=== PATIENT | female | born 1960 | race Caucasian/White ===

== ENCOUNTER 2020-05-14 08:04 | Emergency (ER) | payer OTHER, MEDICAID ==
[~2020-05-14] VITALS: Ht 167.6 cm; Wt 80.7 kg
[2020-05-14 08:07] VITALS: BP 144/86
[2020-05-14] MEDS ORDERED: IBUPROFEN 600 MG TAB PO ONE (08:20)
[2020-05-14 08:31] LABS: BASOPHILS % (AUTO) 0.2 % (0.0-2.0); EOSINOPHILS # (AUTO) 0.1 K/uL (0-0.4); HEMATOCRIT 39.1 % (36-48); HEMOGLOBIN 13.4 g/dL (12.0-16.0); LYMPHOCYTES # (AUTO) 1.4 K/uL (2.5-16.5); LYMPHOCYTES % (AUTO) 16.8 % (20.5-51.1); MEAN CORPUSCULAR HEMOGLOBIN 32 pg (27-31); MEAN CORPUSCULAR HGB CONC 34 g/dL (33-37); MEAN CORPUSCULAR VOLUME 93.3 fL (80-94); MONOCYTES % (AUTO) 11.7 % (1.7-9.3); NEUTROPHILS # (AUTO) 5.8 K/uL (1.8-7.7); NEUTROPHILS % (AUTO) 70.3 % (42.2-75.2); PLATELET COUNT (AUTO) 205 K/uL (140-450); RED BLOOD CELL COUNT(AUTO) 4.19 MIL/uL (4.20-5.40); RED CELL DISTRIBUTION WIDTH 13.5 % (11.6-13.7); WHITE BLOOD COUNT (AUTO) 8.2 K/uL (4.8-10.8)
[2020-05-14 09:24] LABS: ANION GAP 10.3 (8-16); CARBON DIOXIDE 32.3 mmol/L (21-32); CREATININE 0.6 mg/dL (0.6-1.3); POTASSIUM 4.6 mmol/L (3.5-5.1)
[2020-05-14 09:25] LABS: APPEARANCE,URINE CLEAR (CLEAR); BILIRUBIN,URINE NEGATIVE (NEGATIVE); BLOOD, URINE NEGATIVE (NEGATIVE); COLOR,URINE YELLOW (YELLOW); LEUKOCYTE ESTERASE ,URINE NEGATIVE (NEGATIVE); NITRITE, URINE NEGATIVE (NEGATIVE); PH,URINE 7.5 (5.0-9.0); UGLUCOSE NEGATIVE (NEGATIVE)
[2020-05-14] MEDS ORDERED: NAPR-54 PO ×2 (10:08→10:15)
[2020-05-14 10:30] VITALS: BP 144/86
== END 2020-05-14 10:31 | disposition home or self-care (01) ==
LOC: MED 08:04
DX: S70.02XA Contusion of left hip, initial encounter (principal); S50.02XA Contusion of left elbow, initial encounter; S63.592A Other specified sprain of left wrist, initial encounter; R55 Syncope and collapse; W18.39XA Other fall on same level, initial encounter; Y93.89 Activity, other specified; Y92.89 Other specified places as the place of occurrence of the external cause; Y99.8 Other external cause status
CPT/HCPCS: 36415; 71045; 72170; 73080; 73110; 73502; 80048; 81003; 84484; 85025; 87491; 93005; 99285

== ENCOUNTER 2020-06-13 17:27 | Emergency (ER) | payer OTHER, MEDICAID ==
[~2020-06-13] VITALS: Ht 167.6 cm; Wt 81.2 kg
[~2020-06-13 17:27] MED LIST: NAPR-54 PO
--- NOTE | 2020-06-13 17:27 | NUR ---
Patient HUMBERTO FRANCOIS from [facility], [place], transferred to bed 8. RN evaluating the patient at bedside.
[2020-06-13 17:29] VITALS: BP 173/83
--- NOTE | 2020-06-13 17:40 | NUR ---
Dr. Cazares is evaluating patient at bedside.
--- NOTE | 2020-06-13 17:45 | NUR ---
60 y/o F HUMBERTO from [facility] with c/c shortness of breath/anxiety. Per EMS, patient has been experiencing "shakiness" and shortness of breath. Patient states she has been having recent stressors that is causing her to feel anxious; describes stressor as loss of residency in [facility] and losing her boyfriend from that facility. Patient SpO2 100% on room air RR 20. Patient states associated loss of appetite, back and abdominal pain that is chronic in nature. States she normally takes Gabapentin as prescribed for back pain, and abdominal pain is epigastric region that is 8/10, tight "nerve-like," constant, nonradiating pain. Pt states recent vaccination Covid 2nd dose 06/02/20. Pt denies chest pain, nausea, vomiting, fever, chills. Pt placed onto ekg monitor, placed into gown. Bed locked in lowest position, side rails x 1. PMH: HTN, depression, bipolar, schizophrenia Meds: Gabapentin, see chart. NKA Sx: Hysterectomy 2007
--- NOTE | 2020-06-13 17:55 | NUR ---
Lab at bedside.
[2020-06-13 18:13] LABS: BASOPHILS % (AUTO) 0.2 % (0.0-2.0); EOSINOPHILS # (AUTO) 0.1 K/uL (0-0.4); EOSINOPHILS % (AUTO) 1.4 % (0.0-4.0); HEMATOCRIT 37.3 % (36-48); HEMOGLOBIN 12.6 g/dL (12.0-16.0); LYMPHOCYTES # (AUTO) 1.4 K/uL (2.5-16.5); LYMPHOCYTES % (AUTO) 23.4 % (20.5-51.1); MEAN CORPUSCULAR HEMOGLOBIN 33 pg (27-31); MEAN CORPUSCULAR HGB CONC 34 g/dL (33-37); MEAN CORPUSCULAR VOLUME 95.6 fL (80-94); MONOCYTES # (AUTO) 0.8 K/uL (0.8-1.0); MONOCYTES % (AUTO) 14.2 % (1.7-9.3); NEUTROPHILS # (AUTO) 3.6 K/uL (1.8-7.7); NEUTROPHILS % (AUTO) 60.8 % (42.2-75.2); PLATELET COUNT (AUTO) 198 K/uL (140-450); RED CELL DISTRIBUTION WIDTH 13.4 % (11.6-13.7); WHITE BLOOD COUNT (AUTO) 5.9 K/uL (4.8-10.8)
--- NOTE | 2020-06-13 18:20 | NUR ---
EMT at bedside for EKG.
[2020-06-13 18:26] LABS: ALBUMIN 4.3 g/dL (3.4-5.0); ANION GAP 9.2 (8-16); CARBON DIOXIDE 30.7 mmol/L (21-32); CREATININE 0.8 mg/dL (0.6-1.3); POTASSIUM 3.9 mmol/L (3.5-5.1); TOTAL BILIRUBIN 0.3 mg/dL (0.0-1.0)
--- NOTE | 2020-06-13 18:26 | NUR ---
Xray at bedside
--- NOTE | 2020-06-13 18:46 | NUR ---
Patient resting in semi-fowlers position; no respiratory distress noted. power and recovery supervisor remains in place. SpO2 98% on room air, RR 16. Bed locked in lowest position, side rails x 1, call light in reach.
--- NOTE | 2020-06-13 18:51 | NUR ---
Patient assisted to restroom via wheelchair to urinate.
--- NOTE | 2020-06-13 19:00 | NUR ---
Patient assisted via wheelchair from restroom back to bed. Pt placed back onto site monitor. Bed locked in lowest position, side rails x 1, call light in reach.
--- NOTE | 2020-06-13 19:01 | NUR ---
Urine sample collected, remains at bedside.
--- NOTE | 2020-06-13 19:14 | NUR ---
Report and transfer of care given to Rosana & DEE Mcclendon.
[2020-06-13 19:33] VITALS: BP 120/66
--- NOTE | 2020-06-13 19:33 | NUR ---
Patient discharged with v/s stable. Written and verbal after care instructions given and explained. Patient verbalized understanding. Wheel Chair Assisted with to car. All questions addressed prior to discharge. Advised to follow up with PMD.
== END 2020-06-13 19:33 | disposition home or self-care (01) ==
LOC: MED 17:27
DX: F41.9 Anxiety disorder, unspecified (principal); R06.00 Dyspnea, unspecified; I10 Essential (primary) hypertension; Z79.899 Other long term (current) drug therapy
CPT/HCPCS: 36415; 71045; 80053; 84484; 85025; 93005; 99285

== ENCOUNTER 2020-06-23 09:17 | Outpatient (CLI) | payer OTHER, MEDICAID | END 2020-06-23 20:51 | disposition home or self-care (01) | LOC: MRD 09:17 | DX: M25.561 Pain in right knee (principal) | CPT/HCPCS: 73562 ==

== ENCOUNTER 2020-06-30 18:19 | Emergency (ER) | payer OTHER, MEDICAID ==
[~2020-06-30] VITALS: Ht 167.6 cm; Wt 83.5 kg
[2020-06-30 18:21] VITALS: BP 172/84
[2020-06-30] MEDS ORDERED: ONDANSETRON 4 MG/2 ML VIAL IVP ONE (18:35)
[2020-06-30] MEDS ORDERED: MORPHINE SULFATE 4 MG/ML SYR IVP ONE (18:35)
[2020-06-30 19:08] LABS: BASOPHILS % (AUTO) 0.2 % (0.0-2.0); EOSINOPHILS # (AUTO) 0.2 K/uL (0-0.4); EOSINOPHILS % (AUTO) 3.1 % (0.0-4.0); HEMATOCRIT 35.3 % (36-48); HEMOGLOBIN 12.1 g/dL (12.0-16.0); LYMPHOCYTES # (AUTO) 1.5 K/uL (2.5-16.5); MEAN CORPUSCULAR HEMOGLOBIN 32 pg (27-31); MEAN CORPUSCULAR HGB CONC 34 g/dL (33-37); MEAN CORPUSCULAR VOLUME 94.3 fL (80-94); MONOCYTES # (AUTO) 0.9 K/uL (0.8-1.0); MONOCYTES % (AUTO) 13.6 % (1.7-9.3); NEUTROPHILS # (AUTO) 3.8 K/uL (1.8-7.7); NEUTROPHILS % (AUTO) 60.1 % (42.2-75.2); PLATELET COUNT (AUTO) 188 K/uL (140-450); RED BLOOD CELL COUNT(AUTO) 3.75 MIL/uL (4.20-5.40); RED CELL DISTRIBUTION WIDTH 12.8 % (11.6-13.7); WHITE BLOOD COUNT (AUTO) 6.4 K/uL (4.8-10.8)
--- NOTE | 2020-06-30 19:15 | NUR ---
ULTRASOUND AT BEDSIDE
[2020-06-30 19:21] LABS: ANION GAP 6.4 (8-16); CARBON DIOXIDE 31.5 mmol/L (21-32); CREATININE 0.6 mg/dL (0.6-1.3); POTASSIUM 3.9 mmol/L (3.5-5.1); TOTAL BILIRUBIN 0.4 mg/dL (0.0-1.0)
--- NOTE | 2020-06-30 19:30 | NUR ---
REPORT RECEIVED FROM LINDA PRICE FOR CONTINUITY OF CARE
[2020-06-30 19:37] LABS: APPEARANCE,URINE CLEAR (CLEAR); BILIRUBIN,URINE NEGATIVE (NEGATIVE); BLOOD, URINE NEGATIVE (NEGATIVE); COLOR,URINE YELLOW (YELLOW); LEUKOCYTE ESTERASE ,URINE NEGATIVE (NEGATIVE); NITRITE, URINE NEGATIVE (NEGATIVE); UGLUCOSE NEGATIVE (NEGATIVE)
--- NOTE | 2020-06-30 20:41 | NUR ---
Dr. Cazares examining patient.
[2020-06-30] MEDS ORDERED: GLYPS RC (21:13)
[2020-06-30] MEDS ORDERED: ACETAMINOPHEN EXTRA STRENGTH 500 MG TAB PO ONE (21:20)
[2020-06-30 21:28] VITALS: BP 150/90
--- NOTE | 2020-06-30 21:28 | NUR ---
Patient discharged with v/s stable. Written and verbal after care instructions given and explained. Patient alert, oriented and verbalized understanding of instructions. Ambulatory with steady gait to [facility]. All questions addressed prior to discharge. ID band removed. Patient advised to follow up with PMD. Rx of GLYCERIN given. Patient educated on indication of medication including possible reaction and side effects. Opportunity to ask questions provided and answered.
--- NOTE | 2020-06-30 21:29 | NUR ---
CALLED REPORT TO SWEETIE AT [facility].
== END 2020-06-30 21:28 ==
LOC: MED 18:19
DX: K59.00 Constipation, unspecified (principal); I10 Essential (primary) hypertension; Z79.899 Other long term (current) drug therapy
CPT/HCPCS: 36415; 76705; 80053; 81003; 83690; 84484; 85025; 96374; 96375; 99284; J2270; J2405

== ENCOUNTER 2020-08-11 18:51 | Emergency (ER) | payer OTHER ==
[~2020-08-11] VITALS: Ht 167.6 cm; Wt 63.5 kg
[~2020-08-11 18:51] MED LIST changes: +GLYPS RC
[2020-08-11 18:59] VITALS: BP 147/83
--- NOTE | 2020-08-11 19:03 | NUR ---
PT HUMBERTO FROM [facility]. PATIENT PRESENTS TO ED WITH CONSTIPATION X 1 WEEK . PT STATES SHE IS ALSO HAVING BILATERAL FLANK PAIN . DENIES N/V/D; SKIN IS PINK/WARM/DRY; AAOX4 WITH EVEN AND STEADY GAIT; LUNGS CLEAR BL; HR EVEN AND REGULAR; PT DENIES ANY FEVER, CP, SOB, OR COUGH AT THIS TIME; PATIENT STATES PAIN OF 5/10 AT THIS TIME; VSS; PATIENT POSITIONED FOR COMFORT; HOB ELEVATED; BEDRAILS UP X2; BED DOWN. ER MD MADE AWARE OF PT STATUS.
--- NOTE | 2020-08-11 19:17 | NUR ---
RECEIVED REPORT FROM MARCELA PRICE FOR CONTINUITY OF CARE
[2020-08-11] MEDS ORDERED: SENNA 8.6 MG TAB PO SCH (19:20)
[2020-08-11] MEDS ORDERED: SODIUM PHOSPHATE 118 ML ENEM RC ONE (19:20)
[2020-08-11] MEDS ORDERED: DOCUSATE SODIUM 100 MG GELCAP PO PRN (19:20)
[2020-08-11] MEDS ORDERED: MAGNESIUM CITRATE 300 ML BTL PO ONE (19:20)
[2020-08-11] MEDS ORDERED: DOCU-299 PO (20:40)
[2020-08-12 00:15] VITALS: BP 147/83
--- NOTE | 2020-08-12 00:15 | NUR ---
Patient discharged with v/s stable. Written and verbal after care instructions given and explained. Patient alert, oriented and verbalized understanding of instructions. Ambulatory with to intermediate. All questions addressed prior to discharge. ID band removed. Patient advised to follow up with PMD. Rx of DOCUSATE SODIUM given. Patient educated on indication of medication including possible reaction and side effects. Opportunity to ask questions provided and answered.
== END 2020-08-12 00:15 | disposition home or self-care (01) ==
LOC: MED 18:51
DX: K59.00 Constipation, unspecified (principal); R14.0 Abdominal distension (gaseous); E11.9 Type 2 diabetes mellitus without complications; I10 Essential (primary) hypertension; Z79.899 Other long term (current) drug therapy; Z90.710 Acquired absence of both cervix and uterus
CPT/HCPCS: 99284

== ENCOUNTER 2020-08-25 18:38 | Emergency (ER) | payer OTHER ==
[~2020-08-25] VITALS: Ht 167.6 cm; Wt 78.0 kg
[~2020-08-25 18:38] MED LIST changes: +DOCU-299 PO
[2020-08-25 18:40] VITALS: BP 145/79
--- NOTE | 2020-08-25 18:40 | NUR ---
Patient is a 60 y/o female BIBA from [facility] c/o constipation x1 year. Also c/o abdominal pain secondary to constipation, sharp pain 12/18 today. Per patient no n/v/d. Patient denies blood in stool or hematuria. Patient denies CP or SOB. NKA PMH: HTN, Bipolar, Schizophrenia, neuropathy, anxiety, unspecified chest pain Rx: does not know names
--- NOTE | 2020-08-25 19:03 | NUR ---
Patient taken to CT scan via gurney by Tyros.
--- NOTE | 2020-08-25 19:16 | NUR ---
Report given to DEE Shelby for continuation of care.
--- NOTE | 2020-08-25 19:37 | NUR ---
Dr. Zaragoza is evaluating the patient at bedside.
[2020-08-25] MEDS ORDERED: SODIUM PHOSPHATE 118 ML ENEM RC ONE (19:40)
[2020-08-25] MEDS ORDERED: MIRABULK PO (20:12)
[2020-08-25] MEDS ORDERED: MAGN1.7529 PO (20:12)
--- NOTE | 2020-08-25 20:21 | NUR ---
PT AMBULATED TO RESTROOM W/ ASSISTANCE.
--- NOTE | 2020-08-25 20:45 | NUR ---
attempted to call [facility] to report that pt is to be d/c back. x 3 times with no success.
--- NOTE | 2020-08-25 20:49 | NUR ---
Patient ambulated w/ walked to restroom
--- NOTE | 2020-08-25 20:54 | NUR ---
per pt, successful elimination. Dr. Zaragoza made aware.
[2020-08-25 20:55] VITALS: BP 136/79
--- NOTE | 2020-08-25 21:34 | NUR ---
attempted to call [facility] again x 11 times and no answer.
--- NOTE | 2020-08-25 22:46 | NUR ---
d/c with VSS. d/c education given. rx of miralax and mag citrate given. opportunity to ask questions given and answered.
[2020-08-26] MEDS ORDERED: MAGN296S48 PO (18:32)
[2020-08-26] MEDS ORDERED: GLYPS RC (22:58)
== END 2020-08-25 22:46 | disposition home or self-care (01) ==
LOC: MED 18:38
DX: K59.00 Constipation, unspecified (principal); E11.9 Type 2 diabetes mellitus without complications; I10 Essential (primary) hypertension; Z79.899 Other long term (current) drug therapy
CPT/HCPCS: 99284

== ENCOUNTER 2020-08-26 17:03 | Emergency (ER) | payer OTHER ==
[~2020-08-26] VITALS: Ht 167.6 cm; Wt 81.6 kg
[~2020-08-26 17:03] MED LIST changes: +MAGN1.7529 PO; +MIRABULK PO
[2020-08-26 17:16] VITALS: BP 137/87
--- NOTE | 2020-08-26 17:18 | NUR ---
PATIENT WHEELCHAIR ASSISTED TO LOBBY
--- NOTE | 2020-08-26 17:41 | NUR ---
60 Y/O FEMALE C/O CONSTIPATION, WAS SEEN AT [facility] YESTERDAY AND HAD ENEMA FOR SAME ISSUE. PT STATES SHE NEVER GOT TO TAKE HER PRESCRIPTION SO SHE WANTED TO RETURN. PT STATES "I WANT THE YELLOW BOTTLE THAT WILL HELP ME" PMH: BIPOLAR, DEPRESSION, SCHIZOPHRENIA ZEINA
[2020-08-26] MEDS ORDERED: MAGNESIUM CITRATE 300 ML BTL PO ONE (18:30)
[2020-08-26] MEDS ORDERED: MAGN296S48 PO (18:32)
--- NOTE | 2020-08-26 19:06 | NUR ---
Gave report to DEE Lopez for pending transfer via [employer] taxi voucher.
--- NOTE | 2020-08-26 19:12 | NUR ---
Patient discharged with v/s stable. Written and verbal after care instructions given and explained. Patient alert, oriented and verbalized understanding of instructions. Ambulatory with steady gait. All questions addressed prior to discharge. ID band removed. Patient advised to follow up with PMD. Rx of Magnesium Citrate 150 mL PO PRN B.I.D given. Patient educated on indication of medication including possible reaction and side effects. Opportunity to ask questions provided and answered.
--- NOTE | 2020-08-26 19:15 | NUR ---
Spoke with LACEY OSWALD for pt voucher [id number], authorized by Betty.
--- NOTE | 2020-08-26 19:45 | NUR ---
CALLED [facility] TO POSSIBLY PROVIDE TRANSPORTATION, NO ANSWER, VOICEMAIL LEFT.
--- NOTE | 2020-08-26 19:58 | NUR ---
[facility] CALLED BACK AND STATED UNABLE TO PICK PATIENT UP. CALLING [facility] POSSIBLE ETA FOR PATIENT.
--- NOTE | 2020-08-26 20:05 | NUR ---
Gave report to DEE Bingham. Transfer of care at this time.
--- NOTE | 2020-08-26 21:01 | NUR ---
CALLED [facility] AND NO ETA FOR TRANSPORTATION AT THIS TIME. PER [facility] NO DRIVERS AVAILABLE AT THIS TIME.
--- NOTE | 2020-08-26 21:12 | NUR ---
SPOKE WITH OSMIN FROM [facility] AND [facility] 15-20 MIN.
--- NOTE | 2020-08-26 22:11 | NUR ---
PATIENT AMBUALTED TO RESTROOM WITH STEADY GAIT.
[2020-08-26 22:50] VITALS: BP 132/76
[2020-08-26] MEDS ORDERED: GLYPS RC (22:58)
--- NOTE | 2020-08-26 23:00 | NUR ---
PATIENT PICKED UP BY [facility], PATIENT ABLE TO AMBULATE WITH STEADY GAIT TO [facility]. VSS.
== END 2020-08-26 19:11 | disposition home or self-care (01) ==
LOC: MED 17:03
DX: K59.00 Constipation, unspecified (principal); E11.9 Type 2 diabetes mellitus without complications; I10 Essential (primary) hypertension; Z79.899 Other long term (current) drug therapy
CPT/HCPCS: 99282

== ENCOUNTER 2020-08-30 19:57 | Emergency (ER) | payer OTHER ==
[~2020-08-30] VITALS: Ht 167.6 cm; Wt 81.6 kg
[~2020-08-30 19:57] MED LIST changes: +MAGN296S48 PO
[2020-08-30 19:58] VITALS: BP 122/67
[2020-08-30 20:38] LABS: BASOPHILS # (AUTO) 0.1 K/uL (0.00-0.22); BASOPHILS % (AUTO) 0.8 % (0.0-2.0); EOSINOPHILS # (AUTO) 0.9 K/uL (0-0.4); EOSINOPHILS % (AUTO) 11.6 % (0.0-4.0); HEMATOCRIT 33.6 % (36-48); HEMOGLOBIN 11.5 g/dL (12.0-16.0); LYMPHOCYTES # (AUTO) 2.2 K/uL (2.5-16.5); MEAN CORPUSCULAR HEMOGLOBIN 33 pg (27-31); MEAN CORPUSCULAR HGB CONC 34 g/dL (33-37); MEAN CORPUSCULAR VOLUME 95.2 fL (80-94); MONOCYTES # (AUTO) 0.9 K/uL (0.8-1.0); MONOCYTES % (AUTO) 10.6 % (1.7-9.3); NEUTROPHILS # (AUTO) 4.1 K/uL (1.8-7.7); PLATELET COUNT (AUTO) 197 K/uL (140-450); RED BLOOD CELL COUNT(AUTO) 3.53 MIL/uL (4.20-5.40); RED CELL DISTRIBUTION WIDTH 12.7 % (11.6-13.7); WHITE BLOOD COUNT (AUTO) 8.2 K/uL (4.8-10.8)
[2020-08-30 20:51] LABS: ALBUMIN 3.7 g/dL (3.4-5.0); ANION GAP 8.8 (8-16); CARBON DIOXIDE 32.9 mmol/L (21-32); CREATININE 0.9 mg/dL (0.6-1.3); POTASSIUM 3.7 mmol/L (3.5-5.1); TOTAL BILIRUBIN 0.3 mg/dL (0.0-1.0)
[2020-08-30] MEDS ORDERED: MAGNESIUM CITRATE 300 ML BTL PO ONE (23:05)
[2020-08-31] MEDS ORDERED: MAGNESIUM CITRATE 300 ML BTL ONE (01:14)
[2020-08-31 03:40] VITALS: BP 122/78
== END 2020-08-31 03:40 ==
LOC: MED 19:57
DX: R07.9 Chest pain, unspecified (principal); K21.9 Gastro-esophageal reflux disease without esophagitis; I10 Essential (primary) hypertension; F20.9 Schizophrenia, unspecified; F32.9 Major depressive disorder, single episode, unspecified; F41.9 Anxiety disorder, unspecified; Z79.899 Other long term (current) drug therapy
CPT/HCPCS: 36415; 71045; 80053; 84484; 85025; 93005; 99285

== ENCOUNTER 2020-09-02 17:42 | Emergency (ER) | payer OTHER ==
[~2020-09-02] VITALS: Ht 162.6 cm; Wt 74.4 kg
--- NOTE | 2020-09-02 17:42 | NUR ---
Patient HUMBERTO FRANCOIS from [facility], triaged by RN and transferred to the lobby.
[2020-09-02 17:52] VITALS: BP 125/78
--- NOTE | 2020-09-02 18:15 | NUR ---
Pt w/c assisted to bed 8.
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
--- NOTE | 2020-09-02 19:20 | NUR ---
REPORT GIVEN TO DEE GUZMAN. TRANSFER OF CARE GIVEN
[2020-09-02 19:30] VITALS: BP 125/78
--- NOTE | 2020-09-02 19:30 | NUR ---
Patient discharged with v/s stable. Written and verbal after care instructions given and explained. Patient verbalized understanding. Ambulatory with steady gait. All questions addressed prior to discharge. Advised to follow up with PMD.
== END 2020-09-02 19:30 | disposition home or self-care (01) ==
LOC: MED 17:42
DX: K59.00 Constipation, unspecified (principal); I51.9 Heart disease, unspecified; K21.9 Gastro-esophageal reflux disease without esophagitis; Z79.899 Other long term (current) drug therapy; F41.9 Anxiety disorder, unspecified; F20.9 Schizophrenia, unspecified; F32.9 Major depressive disorder, single episode, unspecified
CPT/HCPCS: 99281; 99283

== ENCOUNTER 2020-09-14 15:51 | Emergency (ER) | payer OTHER ==
[~2020-09-14] VITALS: Ht 167.6 cm; Wt 80.7 kg
[2020-09-14 15:56] VITALS: BP 166/83
[2020-09-14] MEDS ORDERED: ACETAMINOPHEN 650 MG/20.3 ML UDC PO ONE (16:00)
[2020-09-14] MEDS ORDERED: KETOROLAC 15 MG/ML VIAL IM ONE (16:00)
[2020-09-14 16:40] LABS: BASOPHILS % (AUTO) 0.1 % (0.0-2.0); EOSINOPHILS # (AUTO) 0.2 K/uL (0-0.4); EOSINOPHILS % (AUTO) 3.5 % (0.0-4.0); HEMATOCRIT 33.1 % (36-48); HEMOGLOBIN 11.2 g/dL (12.0-16.0); LYMPHOCYTES # (AUTO) 1.4 K/uL (2.5-16.5); LYMPHOCYTES % (AUTO) 22.1 % (20.5-51.1); MEAN CORPUSCULAR HEMOGLOBIN 33 pg (27-31); MEAN CORPUSCULAR HGB CONC 34 g/dL (33-37); MEAN CORPUSCULAR VOLUME 96.4 fL (80-94); MONOCYTES # (AUTO) 0.9 K/uL (0.8-1.0); MONOCYTES % (AUTO) 14.5 % (1.7-9.3); NEUTROPHILS # (AUTO) 3.7 K/uL (1.8-7.7); NEUTROPHILS % (AUTO) 59.8 % (42.2-75.2); PLATELET COUNT (AUTO) 193 K/uL (140-450); RED BLOOD CELL COUNT(AUTO) 3.43 MIL/uL (4.20-5.40); RED CELL DISTRIBUTION WIDTH 12.9 % (11.6-13.7); WHITE BLOOD COUNT (AUTO) 6.2 K/uL (4.8-10.8)
[2020-09-14 17:07] LABS: ALBUMIN 4.2 g/dL (3.4-5.0); ANION GAP 11.8 (8-16); CARBON DIOXIDE 31.1 mmol/L (21-32); CREATININE 0.9 mg/dL (0.6-1.3); POTASSIUM 3.9 mmol/L (3.5-5.1); TOTAL BILIRUBIN 0.3 mg/dL (0.0-1.0)
[2020-09-14 19:13] VITALS: BP 137/85
== END 2020-09-14 19:19 | disposition home or self-care (01) ==
LOC: MED 15:51
DX: R51.9 Headache, unspecified (principal); R60.0 Localized edema; F31.9 Bipolar disorder, unspecified; F20.9 Schizophrenia, unspecified; I10 Essential (primary) hypertension
CPT/HCPCS: 36415; 71045; 80053; 83880; 84484; 85025; 85651; 93005; 96372; 99285; J1885

== ENCOUNTER 2020-09-23 21:35 | Emergency (ER) | payer OTHER ==
[~2020-09-23] VITALS: Ht 167.6 cm; Wt 81.2 kg
[2020-09-23 21:40] VITALS: BP 146/89
--- NOTE | 2020-09-23 21:43 | NUR ---
TO LOBBY A/W BED AMBULATORY
--- NOTE | 2020-09-23 22:40 | NUR ---
PATIENT PRESENTS TO ED VIA [facility] WITH C/O CONSTIPATION . PT STATES LAST BM WAS YESTERDAY AM . SKIN IS PINK/WARM/DRY; AAOX4 WITH WALKER; LUNGS CLEAR BL; HR EVEN AND REGULAR; PT DENIES ANY FEVER, CP, SOB, OR COUGH AT THIS TIME; VSS; PATIENT POSITIONED FOR COMFORT; HOB ELEVATED; BEDRAILS UP X2; BED DOWN. ER MD MADE AWARE OF PT STATUS.
--- NOTE | 2020-09-23 22:45 | NUR ---
DR. DAUGHERTY AT BEDSIDE FOR EXAM
[2020-09-23] MEDS ORDERED: HYDROcodone/APAP 5/325 MG 1 TAB TAB PO ONE (23:25)
[2020-09-23] MEDS ORDERED: MAGN400S60 PO (23:29)
[2020-09-23 23:30] VITALS: BP 138/74
--- NOTE | 2020-09-23 23:48 | NUR ---
Patient discharged with v/s stable. Written and verbal after care instructions given and explained. Patient alert, oriented and verbalized understanding of instructions. Ambulatory with steady gait. All questions addressed prior to discharge. ID band removed. Patient advised to follow up with PMD. Rx of MAALOX given. Patient educated on indication of medication including possible reaction and side effects. Opportunity to ask questions provided and answered.
--- NOTE | 2020-09-23 23:52 | NUR ---
CALLED [facility] FOR TRANSPORTATION. ETA IN 1 HR.
[2020-09-27] MEDS ORDERED: MAGN1.7529 PO (01:48)
== END 2020-09-23 23:48 | disposition home or self-care (01) ==
LOC: MED 21:35
DX: K59.00 Constipation, unspecified (principal); I10 Essential (primary) hypertension
CPT/HCPCS: 99283

== ENCOUNTER 2020-09-26 18:22 | Emergency (ER) | payer OTHER ==
[~2020-09-26] VITALS: Ht 165.1 cm; Wt 65.8 kg
[~2020-09-26 18:22] MED LIST changes: +MAGN400S60 PO
[2020-09-26 18:29] VITALS: BP 136/77
--- NOTE | 2020-09-26 19:13 | NUR ---
[facility]ANCES[facility] ASSESSED PATIENT IN LOBBY FOR MEDICAL EVALUATION.
[2020-09-26] MEDS ORDERED: NACL 0.9% 1,000 ML IV ONE (19:25)
--- NOTE | 2020-09-26 19:42 | NUR ---
PATIENT LABS DRAWN IN [facility].
[2020-09-26 19:59] LABS: EOSINOPHILS # (AUTO) 0.3 K/uL (0-0.4); EOSINOPHILS % (AUTO) 3.6 % (0.0-4.0); HEMATOCRIT 34.7 % (36-48); HEMOGLOBIN 11.6 g/dL (12.0-16.0); LYMPHOCYTES % (AUTO) 28.5 % (20.5-51.1); MEAN CORPUSCULAR HEMOGLOBIN 33 pg (27-31); MEAN CORPUSCULAR HGB CONC 34 g/dL (33-37); MEAN CORPUSCULAR VOLUME 97.4 fL (80-94); MONOCYTES # (AUTO) 0.7 K/uL (0.8-1.0); MONOCYTES % (AUTO) 10.4 % (1.7-9.3); NEUTROPHILS % (AUTO) 57.5 % (42.2-75.2); PLATELET COUNT (AUTO) 233 K/uL (140-450); RED BLOOD CELL COUNT(AUTO) 3.56 MIL/uL (4.20-5.40)
[2020-09-26 20:03] LABS: APPEARANCE,URINE CLEAR (CLEAR); BILIRUBIN,URINE NEGATIVE (NEGATIVE); BLOOD, URINE NEGATIVE (NEGATIVE); COLOR,URINE YELLOW (YELLOW); LEUKOCYTE ESTERASE ,URINE TRACE (NEGATIVE); NITRITE, URINE NEGATIVE (NEGATIVE); UGLUCOSE NEGATIVE (NEGATIVE)
[2020-09-26 20:17] LABS: ALBUMIN 3.9 g/dL (3.4-5.0); ANION GAP 12.1 (8-16); CARBON DIOXIDE 31.7 mmol/L (21-32); CREATININE 0.9 mg/dL (0.6-1.3); POTASSIUM 4.8 mmol/L (3.5-5.1); TOTAL BILIRUBIN 0.4 mg/dL (0.0-1.0)
--- NOTE | 2020-09-26 20:20 | NUR ---
PT AMBULATED TO BED 2
[2020-09-26 21:09] LABS: YEAST,URINE Rare /HPF (None Seen)
[2020-09-26] MEDS ORDERED: cephALEXin 500 MG CAP PO ONE (21:20)
[2020-09-26] MEDS ORDERED: CEPH-588 PO (21:22)
[2020-09-26 21:55] VITALS: BP 136/77
--- NOTE | 2020-09-26 21:55 | NUR ---
Patient discharged with v/s stable. Written and verbal after care instructions given and explained. Patient alert, oriented and verbalized understanding of instructions. Ambulatory with steady gait. All questions addressed prior to discharge. ID band removed. Patient advised to follow up with PMD. Rx of KEFLEX, PYRIDIUM given. Patient educated on indication of medication including possible reaction and side effects. Opportunity to ask questions provided and answered.
--- NOTE | 2020-09-26 21:55 | NUR ---
Per ERMD, patient ok for discharge w/o keflex medication.
[2020-09-26] MEDS ORDERED: PHEN-1877 PO (22:15)
[2020-09-27] MEDS ORDERED: MAGN1.7529 PO (01:48)
== END 2020-09-26 21:55 | disposition home or self-care (01) ==
LOC: MED 18:22
DX: N39.0 Urinary tract infection, site not specified (principal); K59.00 Constipation, unspecified; K21.9 Gastro-esophageal reflux disease without esophagitis; I10 Essential (primary) hypertension; Z79.899 Other long term (current) drug therapy; Z90.710 Acquired absence of both cervix and uterus
CPT/HCPCS: 36415; 80053; 81001; 83605; 85025; 87086; 87186; 96360; 99284; J7030

== ENCOUNTER 2020-09-29 00:48 | Emergency (ER) | payer OTHER ==
[~2020-09-29] VITALS: Ht 167.6 cm; Wt 81.2 kg
[~2020-09-29 00:48] MED LIST changes: +CEPH-588 PO; +PHEN-1877 PO
[2020-09-29 00:54] VITALS: BP 152/95
[2020-09-29 01:20] LABS: APPEARANCE,URINE CLEAR (CLEAR); BILIRUBIN,URINE NEGATIVE (NEGATIVE); BLOOD, URINE NEGATIVE (NEGATIVE); COLOR,URINE YELLOW (YELLOW); LEUKOCYTE ESTERASE ,URINE NEGATIVE (NEGATIVE); NITRITE, URINE NEGATIVE (NEGATIVE); UGLUCOSE NEGATIVE (NEGATIVE)
--- NOTE | 2020-09-29 03:21 | NUR ---
TO BED 11 FROM TRIAGE
--- NOTE | 2020-09-29 03:22 | NUR ---
RECEIVED IN BED 11 AFTER BEING BIBA WITH UTI COMPLAINTS. PT WAS DX WITH UTI, GIVEN AN RX FOR ANTIBIOTICS THEN CALLED 911 TONIGHT WITH ADDITIONAL C/O CONSTIPATION. PT IS AWAKE AND ALERT. SKIN IS WARM AND DRY. Addendum: 09/29/20 at 0325 by GIOVANI PMH : SCHIZOPHRENIA, BIPOLAR
--- NOTE | 2020-09-29 03:50 | NUR ---
Patient ambualted to bed restroom with steeady gait.
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
--- NOTE | 2020-09-29 04:39 | NUR ---
RETURNED FROM RADIOLOGY
[2020-09-29] MEDS ORDERED: MAGNESIUM CITRATE 300 ML BTL PO ONE (04:50)
[2020-09-29] MEDS ORDERED: DOCU-349 PO (04:51)
[2020-09-29] MEDS ORDERED: MAGNESIUM CITRATE 300 ML BTL ONE (04:53)
[2020-09-29] MEDS ORDERED: ACETAMINOPHEN EXTRA STRENGTH 500 MG TAB PO ONE (05:10)
[2020-09-29 05:33] VITALS: BP 152/95
--- NOTE | 2020-09-29 05:33 | NUR ---
Patient discharged with v/s stable. Written and verbal after care instructions given and explained. Patient verbalized understanding. Ambulatory with steady gait. All questions addressed prior to discharge. Advised to follow up with PMD. FERNANDO CALLED
[2020-09-30] MEDS ORDERED: NITR100C1 PO (23:35)
[2020-09-30] MEDS ORDERED: PRED20TA5 PO (23:35)
[2020-09-30] MEDS ORDERED: DIPH25TA53 PO (23:35)
== END 2020-09-29 05:33 | disposition home or self-care (01) ==
LOC: MED 00:48
DX: K59.00 Constipation, unspecified (principal)
CPT/HCPCS: 74021; 81003; 99284

== ENCOUNTER 2020-09-30 22:46 | Emergency (ER) | payer OTHER ==
[~2020-09-30] VITALS: Ht 170.2 cm; Wt 85.7 kg
[~2020-09-30 22:46] MED LIST changes: +DOCU-349 PO
--- NOTE | 2020-09-30 22:46 | NUR ---
TO BED AMBULATORY, BROUGHT IN BY AMBULANCE WITH C/O ABD PAIN.
--- NOTE | 2020-09-30 22:49 | NUR ---
60 YO F BIBA FROM [facility] FROM C/C OF CONSTIPATION X2 DAYS. ABD IS SOFT AND ROUND, BOWEL SOUNDS X4 ACTIVE. TENDER TO TOUCH. PT HAS BILAT SWELLING +3 ON LE. PT DENIES TAKING ANYTHING FOR CONSTIPATION. SIDE RAILS X2, BED LOCKED IN LOWEST POSITION. HX: MANIC DEPRESSION, SCHIZO, AND BIPOL NKA
[2020-09-30 22:51] VITALS: BP 141/78
--- NOTE | 2020-09-30 23:04 | NUR ---
ERMD AT BEDSIDE.
[2020-09-30] MEDS ORDERED: MAGNESIUM CITRATE 300 ML BTL PO ONE (23:25)
[2020-09-30] MEDS ORDERED: NITR100C1 PO (23:35)
[2020-09-30] MEDS ORDERED: PRED20TA5 PO (23:35)
[2020-09-30] MEDS ORDERED: DIPH25TA53 PO (23:35)
[2020-09-30] MEDS ORDERED: methylPREDNISolone SS 125 MG/2 ML VIAL IM ONE (23:40)
[2020-09-30] MEDS ORDERED: FAMOTIDINE 20 MG TAB PO ONE (23:40)
[2020-09-30] MEDS ORDERED: diphenhydrAMINE 50 MG/ML VIAL IM ONE (23:40)
--- NOTE | 2020-10-01 | NUR ---
CALLED [facility] QU[facility] TO INFORM ABOUT PT GOING BACK. NO ANSWER.
[2020-10-01 00:11] VITALS: BP 141/78
--- NOTE | 2020-10-01 00:11 | NUR ---
Patient discharged with v/s stable. Written and verbal after care instructions given and explained. Patient alert, oriented and verbalized understanding of instructions. Ambulatory with steady gait. All questions addressed prior to discharge. ID band removed. Patient advised to follow up with PMD. Rx of PREDNISONE, BENDARYL, AND NITROFURANTOIN given. Patient educated on indication of medication including possible reaction and side effects. Opportunity to ask questions provided and answered.
[2020-10-02] MEDS ORDERED: DIPH25TA53 PO (20:04)
[2020-10-02] MEDS ORDERED: FAMO-90 PO (20:04)
[2020-10-02] MEDS ORDERED: PRED20TA5 PO (20:04)
== END 2020-10-01 00:11 | disposition home or self-care (01) ==
LOC: MED 22:46
DX: R21 Rash and other nonspecific skin eruption (principal); K59.09 Other constipation; R30.0 Dysuria; K21.9 Gastro-esophageal reflux disease without esophagitis; I10 Essential (primary) hypertension; Z79.899 Other long term (current) drug therapy
CPT/HCPCS: 96372; 99284; J1200; J2930

== ENCOUNTER 2020-10-02 17:32 | Emergency (ER) | payer OTHER ==
[~2020-10-02] VITALS: Ht 167.6 cm; Wt 81.6 kg
[~2020-10-02 17:32] MED LIST changes: -CEPH-588 PO; +DIPH25TA53 PO; +NITR100C1 PO; +PRED20TA5 PO
[2020-10-02 17:39] VITALS: BP 140/80
[2020-10-02 19:10] LABS: HEMATOCRIT 31.5 % (36-48); HEMOGLOBIN 10.7 g/dL (12.0-16.0); LYMPHOCYTES # (AUTO) 0.7 K/uL (2.5-16.5); LYMPHOCYTES % (AUTO) 10.2 % (20.5-51.1); MEAN CORPUSCULAR HEMOGLOBIN 33 pg (27-31); MEAN CORPUSCULAR HGB CONC 34 g/dL (33-37); MEAN CORPUSCULAR VOLUME 96.2 fL (80-94); MONOCYTES # (AUTO) 0.3 K/uL (0.8-1.0); MONOCYTES % (AUTO) 5.2 % (1.7-9.3); NEUTROPHILS # (AUTO) 5.6 K/uL (1.8-7.7); NEUTROPHILS % (AUTO) 84.6 % (42.2-75.2); PLATELET COUNT (AUTO) 212 K/uL (140-450); RED BLOOD CELL COUNT(AUTO) 3.28 MIL/uL (4.20-5.40); RED CELL DISTRIBUTION WIDTH 12.9 % (11.6-13.7); WHITE BLOOD COUNT (AUTO) 6.7 K/uL (4.8-10.8)
[2020-10-02 19:24] LABS: ALBUMIN 3.7 g/dL (3.4-5.0); CARBON DIOXIDE 30.1 mmol/L (21-32); CREATININE 0.8 mg/dL (0.6-1.3); POTASSIUM 4.1 mmol/L (3.5-5.1); TOTAL BILIRUBIN 0.2 mg/dL (0.0-1.0)
[2020-10-02] MEDS ORDERED: FAMOTIDINE 20 MG TAB PO ONE (19:50)
[2020-10-02] MEDS ORDERED: methylPREDNISolone SS 125 MG/2 ML VIAL IM ONE (19:50)
[2020-10-02] MEDS ORDERED: diphenhydrAMINE 50 MG/ML VIAL IM ONE (19:50)
[2020-10-02] MEDS ORDERED: FAMO-90 PO (20:04)
[2020-10-02] MEDS ORDERED: DIPH25TA53 PO (20:04)
[2020-10-02] MEDS ORDERED: PRED20TA5 PO (20:04)
[2020-10-02 20:28] VITALS: BP 143/75
== END 2020-10-02 20:28 | disposition home or self-care (01) ==
LOC: MED 17:32
DX: R21 Rash and other nonspecific skin eruption (principal); K21.9 Gastro-esophageal reflux disease without esophagitis; I10 Essential (primary) hypertension; Z79.899 Other long term (current) drug therapy
CPT/HCPCS: 36415; 80053; 85025; 96372; 99284; J1200; J2930

== ENCOUNTER 2020-10-06 15:42 | Emergency (ER) | payer OTHER ==
[~2020-10-06] VITALS: Ht 170.2 cm; Wt 68.9 kg
[~2020-10-06 15:42] MED LIST changes: +FAMO-90 PO
[2020-10-06 15:50] VITALS: BP 138/78
--- NOTE | 2020-10-06 15:52 | NUR ---
PT AMBULATED TO LOBBY
--- NOTE | 2020-10-06 18:01 | NUR ---
PT AMBULATED TO BED 11.
[2020-10-06] MEDS ORDERED: ACETAMINOPHEN 325 MG TAB PO ONE (18:15)
--- NOTE | 2020-10-06 18:26 | NUR ---
60/F an from [facility] with c/o anxiety. Patient states after returning home from physical therapy she had a disagreement with her roommate and she began feeling extremely anxious. Patient states she has chronic right knee pain and is currently feeling 7/10 pain. Patient is alert and oriented x4, answering questions appropriately, no distress noted. Patient reports feeling "calm" at the moment.
[2020-10-06 18:30] LABS: APPEARANCE,URINE CLEAR (CLEAR); BILIRUBIN,URINE NEGATIVE (NEGATIVE); BLOOD, URINE NEGATIVE (NEGATIVE); COLOR,URINE YELLOW (YELLOW); LEUKOCYTE ESTERASE ,URINE NEGATIVE (NEGATIVE); NITRITE, URINE NEGATIVE (NEGATIVE); PH,URINE 7.5 (5.0-9.0); UGLUCOSE NEGATIVE (NEGATIVE)
--- NOTE | 2020-10-06 19:10 | NUR ---
Pt report given to Korey. Transfer of care at this time.
[2020-10-06 19:17] VITALS: BP 145/78
--- NOTE | 2020-10-06 19:17 | NUR ---
CALLED [facility] TO GIVE REPORT THAT PT. IS GOING HOME WITH FERNANDO HENDRIX.
== END 2020-10-06 19:17 | disposition home or self-care (01) ==
LOC: MED 15:42
DX: F41.9 Anxiety disorder, unspecified (principal); K21.9 Gastro-esophageal reflux disease without esophagitis; I10 Essential (primary) hypertension; Z79.899 Other long term (current) drug therapy
CPT/HCPCS: 81003; 93005; 99284

== ENCOUNTER 2020-10-14 21:24 | Emergency (ER) | payer OTHER ==
[~2020-10-14] VITALS: Ht 165.1 cm; Wt 79.4 kg
[2020-10-14 21:30] VITALS: BP 148/92
[2020-10-14] MEDS ORDERED: ACETAMINOPHEN 325 MG TAB PO ONE (23:20)
--- NOTE | 2020-10-15 00:04 | NUR ---
d/c with VSS. d/c education given. opportunity to ask questions given and answered. no rx given.
== END 2020-10-15 00:04 | disposition home or self-care (01) ==
LOC: MED 21:24
DX: S09.90XA Unspecified injury of head, initial encounter (principal); K21.9 Gastro-esophageal reflux disease without esophagitis; I10 Essential (primary) hypertension; Z79.899 Other long term (current) drug therapy; W19.XXXA Unspecified fall, initial encounter; Y93.89 Activity, other specified; Y92.89 Other specified places as the place of occurrence of the external cause; Y99.8 Other external cause status
CPT/HCPCS: 70450; 72125; 99285

== ENCOUNTER 2020-10-19 19:11 | Emergency (ER) | payer OTHER ==
[~2020-10-19] VITALS: Ht 167.6 cm; Wt 83.5 kg
--- NOTE | 2020-10-19 19:13 | NUR ---
BIBA TAKEN TO BED #5
[2020-10-19 19:15] VITALS: BP 167/84
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
--- NOTE | 2020-10-19 19:24 | NUR ---
Dr. Null examining patient.
[2020-10-19] MEDS ORDERED: HYDROcodone/APAP 5/325 MG 1 TAB TAB PO ONE (19:30)
[2020-10-19] MEDS ORDERED: ACET-9525 PO (19:31)
[2020-10-19] MEDS ORDERED: IBUP-1842 PO (19:31)
[2020-10-19 19:48] VITALS: BP 167/84
--- NOTE | 2020-10-19 19:48 | NUR ---
Patient discharged with v/s stable. Written and verbal after care instructions given and explained. Patient alert, oriented and verbalized understanding of instructions. Ambulatory with steady gait. All questions addressed prior to discharge. ID band removed. Patient advised to follow up with PMD. Rx of MOTRIN AND HYDROCODONE/ACETAMINOPHEN given. Patient educated on indication of medication including possible reaction and side effects. Opportunity to ask questions provided and answered.
== END 2020-10-19 19:48 ==
LOC: MED 19:11
DX: N64.4 Mastodynia (principal); K21.9 Gastro-esophageal reflux disease without esophagitis; I51.9 Heart disease, unspecified; Z79.899 Other long term (current) drug therapy
CPT/HCPCS: 99283

== ENCOUNTER 2020-10-27 15:15 | Emergency (ER) | payer OTHER ==
[~2020-10-27] VITALS: Ht 165.1 cm; Wt 72.6 kg
[~2020-10-27 15:15] MED LIST changes: +ACET-9525 PO; +IBUP-1842 PO
[2020-10-27 15:17] VITALS: BP 157/77
--- NOTE | 2020-10-27 15:17 | NUR ---
PT SENT TO ER LOBBY TO WAIT FOR AN AVAILABLE BED.
[2020-10-27] MEDS ORDERED: LORazepam 0.5 MG TAB PO ONE (16:20)
[2020-10-27] MEDS ORDERED: ACETAMINOPHEN EXTRA STRENGTH 500 MG TAB PO ONE (16:30)
--- NOTE | 2020-10-27 17:23 | NUR ---
60 Y/O FEMALE BIBA FROM HOME C/O ANXIETY, PATIENT WAS SEEN BY HER PRIMARY MD TODAY AND SHE HAS BEEN TAKING ABILIFY/HALDOL FOR ANXIETY WHICH IS INEFFECTIVE. RESP EVEN AND UNLABORED. AAOX4, AMBULATORY WITH STEADY GAIT, ABLE TO FOLLOW SIMPLE COMMANDS. PMH: ANXIETY, SCHIZO, DEPRESSION
--- NOTE | 2020-10-27 17:51 | NUR ---
FERNANDO ARRANGED FOR PATIENT. VOUCHER LEFT WITH ER ADMITTING. ETA 45 MINS.
--- NOTE | 2020-10-27 18:16 | NUR ---
WENT OUT TO DISCHARGE PATIENT AND PT NOT OUTSIDE. PT LEFT WITHOUT DISCHARGE INSTRUCTIONS.
== END 2020-10-27 18:16 | disposition home or self-care (01) ==
LOC: MED 15:15
DX: F41.9 Anxiety disorder, unspecified (principal); M25.59 Pain in other specified joint; I11.0 Hypertensive heart disease with heart failure; I50.9 Heart failure, unspecified; K21.9 Gastro-esophageal reflux disease without esophagitis; Z79.899 Other long term (current) drug therapy; Z79.891 Long term (current) use of opiate analgesic; Z79.1 Long term (current) use of non-steroidal anti-inflammatories (NSAID)
CPT/HCPCS: 99283

== ENCOUNTER 2020-11-06 22:01 | Emergency (ER) | payer OTHER ==
[~2020-11-06] VITALS: Ht 175.3 cm; Wt 85.7 kg
[2020-11-06 22:05] VITALS: BP 114/60
--- NOTE | 2020-11-06 22:05 | NUR ---
HUMBERTO DUVAL TAKEN TO BED #4
--- NOTE | 2020-11-06 22:10 | NUR ---
RECEIVED IN BED 4, BIBA WITH C/O CONSTIPATION, AND LEFT LOWER ABDOMINAL PAIN. PT STATES "I HAVEN'T HAD A BM IN OVER A WEEK" HAS HISTORY OF CONSTIPATION, SEENHERE FREQUENTLY FOR SIMILAR COMPLAINT. IS AWAKE AND ALERT. ATTACHED TO CM = SR WITHOUT ECTOPY. SKIN IS WARM AND DRY. LLQ IS SOFTA AND SLIGHTLY TENDER
--- NOTE | 2020-11-06 22:15 | NUR ---
DR. DAUGHERTY AT BEDSIDE FOR EXAM
[2020-11-06] MEDS ORDERED: MAGNESIUM CITRATE 300 ML BTL PO ONE (22:20)
[2020-11-06] MEDS ORDERED: MIRABULK PO (22:21)
[2020-11-06 22:40] VITALS: BP 114/60
== END 2020-11-06 22:40 | disposition home or self-care (01) ==
LOC: MED 22:01
DX: K59.09 Other constipation (principal)
CPT/HCPCS: 99283

== ENCOUNTER 2020-11-13 01:54 | Emergency (ER) | payer OTHER ==
[~2020-11-13] VITALS: Ht 167.6 cm; Wt 93.0 kg
--- NOTE | 2020-11-13 01:54 | NUR ---
PT HUMBERTO BLS. TAKEN TO BED 6
[2020-11-13 02:00] VITALS: BP 133/64
--- NOTE | 2020-11-13 02:54 | NUR ---
Dr. Quijano examining patient.
[2020-11-13] MEDS ORDERED: IBUPROFEN 600 MG TAB PO ONE (02:55)
--- NOTE | 2020-11-13 04:07 | NUR ---
Patient discharged with v/s stable. Written and verbal after care instructions given and explained. Patient verbalized understanding. Ambulatory with assisted device. ID band removed All questions addressed prior to discharge. Advised to follow up with PMD.
[2020-11-13 04:09] VITALS: BP 154/71
== END 2020-11-13 04:07 | disposition home or self-care (01) ==
LOC: MED 01:54
DX: F20.9 Schizophrenia, unspecified (principal); K59.09 Other constipation; G89.29 Other chronic pain; M25.572 Pain in left ankle and joints of left foot; M25.571 Pain in right ankle and joints of right foot; K21.9 Gastro-esophageal reflux disease without esophagitis; I10 Essential (primary) hypertension; Z79.899 Other long term (current) drug therapy
CPT/HCPCS: 99282

== ENCOUNTER 2020-11-14 21:10 | Emergency (ER) | payer OTHER ==
[~2020-11-14] VITALS: Ht 170.2 cm; Wt 79.4 kg
[2020-11-14 21:22] VITALS: BP 142/86
[2020-11-14] MEDS ORDERED: ALBUTEROL HFA MDI 90 MCG/ACTUATION 8 GM INH ONE (22:30)
[2020-11-15 03:57] VITALS: BP 142/86
== END 2020-11-15 03:57 | disposition home or self-care (01) ==
LOC: MED 21:10
DX: R07.89 Other chest pain (principal); R51.9 Headache, unspecified; K21.9 Gastro-esophageal reflux disease without esophagitis; I10 Essential (primary) hypertension; Z79.899 Other long term (current) drug therapy; Z98.890 Other specified postprocedural states
CPT/HCPCS: 71045; 71250; 93005; 99285

== ENCOUNTER 2020-12-22 17:48 | Emergency (ER) | payer OTHER ==
[~2020-12-22] VITALS: Ht 167.6 cm; Wt 88.5 kg
[2020-12-22 17:55] VITALS: BP 170/92
--- NOTE | 2020-12-22 18:06 | NUR ---
HUMBERTO FROM [facility] C/O 12/18 LEFT CHEST PAIN RADIATING TO LEFT ARM X TODAY. SEEN HERE FOR ATIPICAL CHEST PAIN 11/17/20. PMH: SCHIZOPHRENIA, BIPOLA
[2020-12-22] MEDS ORDERED: ONDANSETRON 4 MG/2 ML VIAL IVP ONE (18:30)
[2020-12-22] MEDS ORDERED: FAMOTIDINE 20 MG/2 ML VIAL IVP ONE (18:30)
[2020-12-22] MEDS ORDERED: ONDANSETRON 4 MG ODT PO ONE ×2 (18:40)
[2020-12-22] MEDS ORDERED: FAMOTIDINE 20 MG TAB PO ONE ×2 (18:40)
--- NOTE | 2020-12-22 18:41 | NUR ---
PATIENT TAKEN TO RADIOLOGY VIA WHEELCHAIR
[2020-12-22 18:44] LABS: BASOPHILS % (AUTO) 0.2 % (0.0-2.0); EOSINOPHILS # (AUTO) 0.1 K/uL (0-0.4); EOSINOPHILS % (AUTO) 0.8 % (0.0-4.0); HEMATOCRIT 37.2 % (36-48); HEMOGLOBIN 12.7 g/dL (12.0-16.0); LYMPHOCYTES # (AUTO) 1.5 K/uL (2.5-16.5); LYMPHOCYTES % (AUTO) 21.6 % (20.5-51.1); MEAN CORPUSCULAR HEMOGLOBIN 32 pg (27-31); MEAN CORPUSCULAR HGB CONC 34 g/dL (33-37); MEAN CORPUSCULAR VOLUME 92.5 fL (80-94); MONOCYTES # (AUTO) 1.1 K/uL (0.8-1.0); NEUTROPHILS # (AUTO) 4.4 K/uL (1.8-7.7); NEUTROPHILS % (AUTO) 62.4 % (42.2-75.2); PLATELET COUNT (AUTO) 233 K/uL (140-450); RED BLOOD CELL COUNT(AUTO) 4.02 MIL/uL (4.20-5.40); RED CELL DISTRIBUTION WIDTH 12.1 % (11.6-13.7); WHITE BLOOD COUNT (AUTO) 7.1 K/uL (4.8-10.8)
[2020-12-22 18:59] LABS: ALBUMIN 4.4 g/dL (3.4-5.0); ANION GAP 13.4 (8-16); CARBON DIOXIDE 30.9 mmol/L (21-32); CREATININE 0.9 mg/dL (0.6-1.3); POTASSIUM 4.3 mmol/L (3.5-5.1); TOTAL BILIRUBIN 0.3 mg/dL (0.0-1.0)
[2020-12-22] MEDS ORDERED: NACL 0.9% 1,000 ML IV ONE (19:20)
--- NOTE | 2020-12-22 20:28 | NUR ---
PT MOVED TO BED 06.
[2020-12-22 21:57] LABS: CARBON DIOXIDE 28.9 mmol/L (21-32); CREATININE 0.8 mg/dL (0.6-1.3); POTASSIUM 3.9 mmol/L (3.5-5.1)
--- NOTE | 2020-12-22 23:30 | NUR ---
RECIVED PATIENT ALERT AND ORIENTED X 4. PATIENT STATES CAME IN FOR C/O CHEST PAIN SINCE THIS MORNING. PATIENT STATES PAIN RADIATED TO L ARM . PATIENT CURRENTLY NOT HAVING CHEST PAIN, 0/10. PRESPIRATIONS ARE EVEN AND UNLABORED, SKIN IS WARM AND DRY TO TOUCH. PATIENT LUNG SOUNDS CLEAR A/P BILAT, PATIENT VSS ON GLUING MACHINE OPERATOR ELECTRONIC.
--- NOTE | 2020-12-22 23:46 | NUR ---
PATIENT PO CHALLENGED WITH NO EPISODES OF N/V NOTED. ERMD MADE AWARE.
[2020-12-23] MEDS ORDERED: SODI100076 PO (00:02)
[2020-12-23] MEDS ORDERED: ONDA4TAB PO (00:07)
[2020-12-23 00:50] VITALS: BP 138/80
--- NOTE | 2020-12-23 00:50 | NUR ---
Patient discharged with v/s stable. Written and verbal after care instructions given and explained. Patient alert, oriented and verbalized understanding of instructions. Ambulatory with steady gait. Transported via friend back to facility. All questions addressed prior to discharge. ID band removed. Patient advised to follow up with PMD. Rx of sodium chloride and zofran given given. Patient educated on indication of medication including possible reaction and side effects. Opportunity to ask questions provided and answered.
== END 2020-12-23 00:50 | disposition home or self-care (01) ==
LOC: MED 17:48
DX: K21.9 Gastro-esophageal reflux disease without esophagitis (principal); G89.29 Other chronic pain; E87.1 Hypo-osmolality and hyponatremia; I10 Essential (primary) hypertension; Z79.899 Other long term (current) drug therapy; Z88.8 Allergy status to other drugs, medicaments and biological substances
CPT/HCPCS: 36415; 71045; 80048; 80053; 84484; 85025; 99285; J7030; Q0162; 93005

== ENCOUNTER 2021-01-06 15:12 | Emergency (ER) | payer OTHER ==
[~2021-01-06] VITALS: Ht 167.6 cm; Wt 79.8 kg
[~2021-01-06 15:12] MED LIST changes: +ONDA4TAB PO; +SODI100076 PO
[2021-01-06 15:16] VITALS: BP 138/90
--- NOTE | 2021-01-06 15:33 | NUR ---
Dr. Day is evaluating patient at bedside
[2021-01-06] MEDS ORDERED: MAGNESIUM CITRATE 300 ML BTL PO ONE (15:40)
--- NOTE | 2021-01-06 15:41 | NUR ---
60YO F C/O CONSTIPATION X 5 WEEKS. REPORTS GENERALIZED ABDOMINAL PAIN /. DENIES N/V, DENIES URINARY SYMPTOMS. PATIENT REPORTS BILATERAL LE SWELLING AND REPORTS FACILITY WOULD NOT ALLOW HER TO HAVE OTC MEDICATIONS. PATIENT REPORTS PASSING GAS AND HAVING LIQUID STOOLS, REQUESTING "MAGNESIUM CITRATE." ABD SOFT/FLAT/NON-TENDER. PT STATES GOOD APPETITE. PT PLACED INTO A GOWN. SKIN WARM/PINK/DRY. BED LOCKED IN LOWEST POSITION, SIDE RAILS X 1. PMH: HTN, BIPOLAR, SCHIZOPHRENIA MEDS: SEE LIST ALLERGY: CEPHALEXIN
--- NOTE | 2021-01-06 16:00 | NUR ---
Pt transported to [facility] by
--- NOTE | 2021-01-06 16:15 | NUR ---
Patient returned from RAD by WC.
--- NOTE | 2021-01-06 16:38 | NUR ---
Rectal exam performed per DR ARROYO with [employer]mediary, Delon PRICE at bedside during procedure. Patient tolerated well.
--- NOTE | 2021-01-06 16:41 | NUR ---
Dr. Day is reevalutaing patient at bedside
--- NOTE | 2021-01-06 16:45 | NUR ---
Patient ambulated with walker to restroom
[2021-01-06] MEDS ORDERED: ONDANSETRON 4 MG ODT PO ONE (17:20)
[2021-01-06] MEDS ORDERED: NA P133N1 RC (17:21)
[2021-01-06] MEDS ORDERED: MAGN1.7529 PO (17:21)
[2021-01-06 17:35] VITALS: BP 149/85
--- NOTE | 2021-01-06 17:35 | NUR ---
Pt ambulated with walker to [facility]; made aware of 5-45 minute ETA for taxi voucher
--- NOTE | 2021-01-06 17:35 | NUR ---
Patient discharged with v/s stable. Written and verbal after care instructions given and explained. Patient alert, oriented and verbalized understanding of instructions. Ambulatory with steady gait. All questions addressed prior to discharge. ID band removed. Patient advised to follow up with PMD. Rx of Mag Citrate, Fleet Enema given. Patient educated on indication of medication including possible reaction and side effects. Opportunity to ask questions provided and answered.
--- NOTE | 2021-01-06 17:35 | NUR ---
ETA for Taxi voucher 5-45 minutes from 1740 per surgical sales representative.
[2021-01-06] MEDS ORDERED: NA P133N16 RC (17:37)
== END 2021-01-06 17:35 | disposition home or self-care (01) ==
LOC: MED 15:12
DX: K59.00 Constipation, unspecified (principal); M79.89 Other specified soft tissue disorders; K21.9 Gastro-esophageal reflux disease without esophagitis; I10 Essential (primary) hypertension; Z79.899 Other long term (current) drug therapy; Z88.9 Allergy status to unspecified drugs, medicaments and biological substances
CPT/HCPCS: 74018; 99283; Q0092; Q0162

== ENCOUNTER 2021-02-07 20:13 | Emergency (ER) | payer OTHER ==
[~2021-02-07] VITALS: Ht 167.6 cm; Wt 88.0 kg
[2021-02-07 20:13] VITALS: BP 144/72
[~2021-02-07 20:13] MED LIST changes: +NA P133N16 RC
--- NOTE | 2021-02-07 20:18 | NUR ---
PT HUMBERTO FRANCOIS. TAKEN TO ER BED 12
--- NOTE | 2021-02-07 21:04 | NUR ---
REPORTS FALLING AT HOME, DENIES LOC BUT UNSURE IF SHE HIT HER HEAD. REPORTS SOME SLIGHT SOB WITH EPIGASTRIC PAIN. NO OTHER COMPLAINTS. STATES SHE IS SLEEPY, AMBLATED TO BED WITH WALKER FROM EMS STRETCHER.
--- NOTE | 2021-02-07 22:40 | NUR ---
Dr. Leung examining patient.
--- NOTE | 2021-02-07 23:36 | NUR ---
TAKEN TO CT
--- NOTE | 2021-02-08 02:38 | NUR ---
PATIENT CLEARED FOR DISCHARGE AT THIS TIME WITH NO FURTHER COMPLAINTS OR CONCERNS FOLLOWING DISHCARGE TEACHING. PATIENT AMBULATED TO RESTROOM AND ADVISED TO FOLLOW UP WITH PCP.
[2021-02-08 02:39] VITALS: BP 106/71
[2021-02-08] MEDS ORDERED: NAPR-54 PO (15:21)
== END 2021-02-08 02:38 | disposition home or self-care (01) ==
LOC: MED 20:13
DX: S16.1XXA Strain of muscle, fascia and tendon at neck level, initial encounter (principal); S09.90XA Unspecified injury of head, initial encounter; M25.511 Pain in right shoulder; W19.XXXA Unspecified fall, initial encounter; Y93.89 Activity, other specified; Y92.89 Other specified places as the place of occurrence of the external cause; Y99.8 Other external cause status
CPT/HCPCS: 70450; 72125; 73030; 73610; 99283; 99285

== ENCOUNTER 2021-02-08 13:37 | Emergency (ER) | payer OTHER ==
[~2021-02-08] VITALS: Ht 165.1 cm; Wt 79.5 kg
[2021-02-08 13:42] VITALS: BP 158/87
--- NOTE | 2021-02-08 13:48 | NUR ---
PT TO [facility] VIA W/C [place]
[2021-02-08] MEDS ORDERED: HYDROcodone/APAP 5/325 MG 1 TAB TAB PO ONE (14:00)
[2021-02-08] MEDS ORDERED: NAPR-54 PO (15:21)
[2021-02-08 15:34] VITALS: BP 158/87
== END 2021-02-08 15:35 | disposition home or self-care (01) ==
LOC: MED 13:37
DX: M25.571 Pain in right ankle and joints of right foot (principal); M54.2 Cervicalgia; R51.9 Headache, unspecified; M25.511 Pain in right shoulder; I11.9 Hypertensive heart disease without heart failure; E11.9 Type 2 diabetes mellitus without complications; K21.9 Gastro-esophageal reflux disease without esophagitis; Z91.011 Allergy to milk products; Z79.899 Other long term (current) drug therapy; W19.XXXA Unspecified fall, initial encounter; Y93.89 Activity, other specified; Y92.89 Other specified places as the place of occurrence of the external cause; Y99.8 Other external cause status
CPT/HCPCS: 73610; 99283

== ENCOUNTER 2021-03-12 07:51 | Emergency (ER) | payer OTHER ==
[~2021-03-12] VITALS: Ht 167.6 cm; Wt 81.6 kg
[2021-03-12 08:07] VITALS: BP 122/81
--- NOTE | 2021-03-12 08:13 | NUR ---
PT W/C ASSISTED TO LOBBY
[2021-03-12 09:41] LABS: ANION GAP 11.5 (8-16); CARBON DIOXIDE 27.9 mmol/L (21-32); CREATININE 0.7 mg/dL (0.6-1.3); POTASSIUM 4.4 mmol/L (3.5-5.1)
[2021-03-12 13:42] LABS: BASOPHILS % (AUTO) 0.5 % (0.0-2.0); EOSINOPHILS # (AUTO) 0.1 K/uL (0-0.4); EOSINOPHILS % (AUTO) 1.6 % (0.0-4.0); HEMATOCRIT 30.7 % (36-48); HEMOGLOBIN 10.5 g/dL (12.0-16.0); LYMPHOCYTES # (AUTO) 0.9 K/uL (2.5-16.5); LYMPHOCYTES % (AUTO) 18.9 % (20.5-51.1); MEAN CORPUSCULAR HEMOGLOBIN 33 pg (27-31); MEAN CORPUSCULAR HGB CONC 34 g/dL (33-37); MEAN CORPUSCULAR VOLUME 95.3 fL (80-94); MONOCYTES # (AUTO) 0.6 K/uL (0.8-1.0); MONOCYTES % (AUTO) 12.1 % (1.7-9.3); NEUTROPHILS # (AUTO) 3.3 K/uL (1.8-7.7); NEUTROPHILS % (AUTO) 66.9 % (42.2-75.2); PLATELET COUNT (AUTO) 206 K/uL (140-450); RED BLOOD CELL COUNT(AUTO) 3.22 MIL/uL (4.20-5.40); RED CELL DISTRIBUTION WIDTH 13.6 % (11.6-13.7)
[2021-03-12 15:31] VITALS: BP 152/70
--- NOTE | 2021-03-12 15:45 | NUR ---
Patient discharged with v/s stable. Written and verbal after care instructions ABOUT CHOKING given and explained. Patient verbalized understanding. Ambulatory with steady gait. All questions addressed prior to discharge. Advised to follow up with PMD. PT GIVEN [facility]AXI VOUCHER
== END 2021-03-12 15:45 | disposition home or self-care (01) ==
LOC: MED 07:51
DX: R09.89 Other specified symptoms and signs involving the circulatory and respiratory systems (principal); K21.9 Gastro-esophageal reflux disease without esophagitis; I10 Essential (primary) hypertension; Z79.899 Other long term (current) drug therapy; Z88.8 Allergy status to other drugs, medicaments and biological substances
CPT/HCPCS: 36415; 71045; 80048; 84484; 85025; 93005; 99285; Q0092

== ENCOUNTER 2021-04-04 12:53 | Emergency (ER) | payer OTHER ==
[~2021-04-04] VITALS: Ht 167.6 cm; Wt 88.0 kg
[2021-04-04 13:11] VITALS: BP 127/89
[2021-04-04] MEDS ORDERED: IBUP-1842 PO (15:24)
[2021-04-04 15:30] VITALS: BP 122/85
--- NOTE | 2021-04-04 15:30 | NUR ---
Patient discharged with v/s stable. Written and verbal after care instructions given FOR HEEL SPUR AND ARTHRITIS and explained. Patient alert, oriented and verbalized understanding of instructions. Ambulatory with steady gait. All questions addressed prior to discharge. ID band removed. Patient advised to follow up with PMD. Rx of IBUPROFEN given. Patient educated on indication of medication including possible reaction and side effects. Opportunity to ask questions provided and answered.
== END 2021-04-04 15:30 | disposition home or self-care (01) ==
LOC: MED 12:53
DX: M25.572 Pain in left ankle and joints of left foot (principal); R06.02 Shortness of breath
CPT/HCPCS: 73590; 73610; 73630; 99284

== ENCOUNTER 2021-05-13 11:57 | Emergency (ER) | payer OTHER ==
[~2021-05-13] VITALS: Ht 167.6 cm; Wt 87.5 kg
[2021-05-13 12:11] VITALS: BP 138/67
--- NOTE | 2021-05-13 12:11 | NUR ---
DR GAMBOA AT BEDSIDE EXAMINING PT
--- NOTE | 2021-05-13 12:11 | NUR ---
61 Y/O FEMALE BIBA C/O CHEST PAIN STARTED TODAY AT 1030 AFTER EATING. PAIN UNDER LT BREAST, SHARP, NON RADIATING. WAS GIVEN 324 ASPIRIN AND NITRO EN ROUTE. PAIN WENT FROM 12/18 TO 09/17. EMS ESTABLISHED RT HAND IV 20G. MEDHX: HTN, BIPOLAR DISORDER, SCHIZOPHRENIA ALLERGIES: LACTOSE, KEFLEX
--- NOTE | 2021-05-13 12:38 | NUR ---
XRAY AT BEDSIDE
[2021-05-13 13:09] LABS: BASOPHILS % (AUTO) 0.1 % (0.0-2.0); EOSINOPHILS # (AUTO) 0.1 K/uL (0-0.4); EOSINOPHILS % (AUTO) 2.7 % (0.0-4.0); HEMATOCRIT 30.3 % (36-48); HEMOGLOBIN 10.2 g/dL (12.0-16.0); LYMPHOCYTES % (AUTO) 21.2 % (20.5-51.1); MEAN CORPUSCULAR HEMOGLOBIN 33 pg (27-31); MEAN CORPUSCULAR HGB CONC 34 g/dL (33-37); MEAN CORPUSCULAR VOLUME 96.3 fL (80-94); MONOCYTES # (AUTO) 0.6 K/uL (0.8-1.0); MONOCYTES % (AUTO) 12.2 % (1.7-9.3); NEUTROPHILS # (AUTO) 3.1 K/uL (1.8-7.7); NEUTROPHILS % (AUTO) 63.8 % (42.2-75.2); PLATELET COUNT (AUTO) 142 K/uL (140-450); RED BLOOD CELL COUNT(AUTO) 3.14 MIL/uL (4.20-5.40); RED CELL DISTRIBUTION WIDTH 12.9 % (11.6-13.7); WHITE BLOOD COUNT (AUTO) 4.9 K/uL (4.8-10.8)
[2021-05-13 13:27] LABS: ANION GAP 10.8 (8-16); CARBON DIOXIDE 30.5 mmol/L (21-32); CREATININE 0.7 mg/dL (0.6-1.3); POTASSIUM 5.3 mmol/L (3.5-5.1)
--- NOTE | 2021-05-13 15:24 | NUR ---
PT JM FOR FOOD. PER DR CHRISTOPHER ALLEN TO GIVE. PROVIDED WITH SANDWICH
[2021-05-13] MEDS ORDERED: NAPR-1704 PO (15:58)
[2021-05-13 16:19] VITALS: BP 131/76
== END 2021-05-13 16:19 | disposition home or self-care (01) ==
LOC: MED 11:57
DX: R07.89 Other chest pain (principal); R06.02 Shortness of breath; F43.9 Reaction to severe stress, unspecified; K21.9 Gastro-esophageal reflux disease without esophagitis; I10 Essential (primary) hypertension; F20.9 Schizophrenia, unspecified; F32.9 Major depressive disorder, single episode, unspecified; Z79.899 Other long term (current) drug therapy; Z88.8 Allergy status to other drugs, medicaments and biological substances
CPT/HCPCS: 36415; 71045; 80048; 83880; 84484; 85025; 93005; 99285; Q0092

== ENCOUNTER 2021-07-31 16:49 | Emergency (ER) | payer OTHER ==
[~2021-07-31] VITALS: Ht 167.6 cm; Wt 72.6 kg
[2021-07-31 16:49] VITALS: BP 117/61
[~2021-07-31 16:49] MED LIST changes: -MAGN1.7529 PO; +MAGN296S2 PO; +NAPR-1704 PO
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
--- NOTE | 2021-07-31 16:55 | NUR ---
PT BIBA TO BED 04.
--- NOTE | 2021-07-31 18:09 | NUR ---
PT TAKEN TO CT VIA ALEXANDRA
--- NOTE | 2021-07-31 18:25 | NUR ---
PT BACK FROM CT
--- NOTE | 2021-07-31 19:31 | NUR ---
Pt report given to DEE SHANNON. Transfer of care at this time.
[2021-07-31 19:35] LABS: EOSINOPHILS # (AUTO) 0.2 K/uL (0-0.4); EOSINOPHILS % (AUTO) 3.4 % (0.0-4.0); HEMATOCRIT 28.8 % (36-48); HEMOGLOBIN 9.8 g/dL (12.0-16.0); LYMPHOCYTES # (AUTO) 1.5 K/uL (2.5-16.5); LYMPHOCYTES % (AUTO) 29.6 % (20.5-51.1); MEAN CORPUSCULAR HEMOGLOBIN 32 pg (27-31); MEAN CORPUSCULAR HGB CONC 34 g/dL (33-37); MEAN CORPUSCULAR VOLUME 94.5 fL (80-94); MONOCYTES # (AUTO) 0.6 K/uL (0.8-1.0); MONOCYTES % (AUTO) 11.6 % (1.7-9.3); NEUTROPHILS # (AUTO) 2.9 K/uL (1.8-7.7); NEUTROPHILS % (AUTO) 55.4 % (42.2-75.2); PLATELET COUNT (AUTO) 185 K/uL (140-450); RED BLOOD CELL COUNT(AUTO) 3.05 MIL/uL (4.20-5.40); RED CELL DISTRIBUTION WIDTH 13.5 % (11.6-13.7); WHITE BLOOD COUNT (AUTO) 5.2 K/uL (4.8-10.8)
[2021-07-31 19:43] LABS: ANION GAP 7.2 (8-16); CREATININE 0.7 mg/dL (0.6-1.3); POTASSIUM 4.2 mmol/L (3.5-5.1)
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
[2021-07-31 21:57] VITALS: BP 109/55
== END 2021-07-31 21:50 | disposition home or self-care (01) ==
LOC: MED 16:49
DX: S16.1XXA Strain of muscle, fascia and tendon at neck level, initial encounter (principal); M25.562 Pain in left knee; K21.9 Gastro-esophageal reflux disease without esophagitis; I10 Essential (primary) hypertension; Z88.8 Allergy status to other drugs, medicaments and biological substances; Z79.899 Other long term (current) drug therapy; W18.30XA Fall on same level, unspecified, initial encounter; Y93.89 Activity, other specified; Y92.89 Other specified places as the place of occurrence of the external cause; Y99.8 Other external cause status
CPT/HCPCS: 36415; 70450; 72125; 80048; 84484; 85025; 93005; 99285

== ENCOUNTER 2021-09-02 12:52 | Emergency (ER) | payer OTHER ==
[~2021-09-02] VITALS: Ht 154.9 cm; Wt 65.8 kg
[2021-09-02 12:55] VITALS: BP 108/72
--- NOTE | 2021-09-02 12:58 | NUR ---
BIBA TO BED 7.
--- NOTE | 2021-09-02 13:29 | NUR ---
LAB AT BEDSIDE.
--- NOTE | 2021-09-02 13:30 | NUR ---
CATHERINE AND PCR SPECIMENS OBTAINED, HANDED TO CPT FALGUNI AT BEDSIDE.
[2021-09-02 13:41] LABS: BASOPHILS % (AUTO) 0.2 % (0.0-2.0); EOSINOPHILS # (AUTO) 0.1 K/uL (0-0.4); HEMOGLOBIN 9.4 g/dL (12.0-16.0); LYMPHOCYTES # (AUTO) 1.4 K/uL (2.5-16.5); LYMPHOCYTES % (AUTO) 20.2 % (20.5-51.1); MEAN CORPUSCULAR HEMOGLOBIN 32 pg (27-31); MEAN CORPUSCULAR HGB CONC 34 g/dL (33-37); MEAN CORPUSCULAR VOLUME 94.4 fL (80-94); NEUTROPHILS # (AUTO) 4.4 K/uL (1.8-7.7); NEUTROPHILS % (AUTO) 64.6 % (42.2-75.2); PLATELET COUNT (AUTO) 144 K/uL (140-450); RED BLOOD CELL COUNT(AUTO) 2.97 MIL/uL (4.20-5.40); RED CELL DISTRIBUTION WIDTH 13.1 % (11.6-13.7); WHITE BLOOD COUNT (AUTO) 6.9 K/uL (4.8-10.8)
--- NOTE | 2021-09-02 14:16 | NUR ---
DR. BOLDEN AT BEDSIDE EVALUATING PATIENT.
--- NOTE | 2021-09-02 14:30 | NUR ---
PATIENT WAS OFFERED A SANDWICH AND JUICE.
--- NOTE | 2021-09-02 14:36 | NUR ---
61 Y/O FEMALE BIBA FROM [facility] WITH SUICIDAL IDEATION. PATIENT HAS A 5150 HOLD. PATIENT STATES SHE FEELS DEPRESSED & SHE WANTS TO CUT HER THROAT WITH PLASTIC LUNCH KNIFE. MEDICAL HISTORY: HTN, DEPRESSION, SCHIZOPHRENIA, BIPOLAR & ANXIETY ALLERGY: LACTOSE, CEFALEXIN
--- NOTE | 2021-09-02 14:56 | NUR ---
PATIENT WAS ASSISTED TO THE RESTROOM.
[2021-09-02 15:27] LABS: ALBUMIN 3.5 g/dL (3.4-5.0); ANION GAP 12.3 (8-16); ASPARTATE AMINOTRANSFERASE 16 U/L (15-37); CARBON DIOXIDE 28.7 mmol/L (21-32); CHLORIDE 96 mmol/L (98-107); CREATININE 0.9 mg/dL (0.6-1.3); GFR ARICAN-AMERICAN 82 mL/min (>90); GLUCOSE 93 mg/dL (74-106); SODIUM SERUM 133 mmol/L (136-145); TOTAL BILIRUBIN 0.3 mg/dL (0.0-1.0); UREA NITROGEN, BLOOD 21 mg/dL (7-18)
--- NOTE | 2021-09-02 15:36 | NUR ---
Stefany [email or web address] in [facility] - 09/02/21 at 1629 by VIRGINIE The patient's care was reviewed and supervised by Pieter Alanis RN.
[2021-09-02 16:06] LABS: ACETAMINOPHEN < 0.5 ug/ml (10-30); SALICYLATE < 2.8 mg/dL (2.8-20.0)
--- NOTE | 2021-09-02 16:20 | NUR ---
PATIENT WAS ASSISTED TO THE RESTROOM.
[2021-09-02] MEDS ORDERED: ACETAMINOPHEN 325 MG TAB PO ONE (17:10)
--- NOTE | 2021-09-02 18:11 | NUR ---
PATIENT WAS OFFERED HER DINNER TRAY. PATIENT IS EATING AT BEDSIDE.
--- NOTE | 2021-09-02 19:15 | NUR ---
REPORT RECIEVED FROM ALIZA PROJECTION CAMERA OPERATOR
--- NOTE | 2021-09-02 19:59 | NUR ---
PATIENT HAS BLISTER /WOUND ON LEFT FOOT 4TH DIGIT. STATES HER DOCTOR HAD CLIPPED HER NAILS, AND WOUND WAS THE RESULT OF TOE NAIL CLIPPING. DR BOLDEN AT BEDSIDE TO ALENA
--- NOTE | 2021-09-02 20:24 | NUR ---
X-Ray at bedside.
--- NOTE | 2021-09-02 21:43 | NUR ---
PT REQUESTING TUMS FOR UPSET STOMACH. ER MD AWARE. PENDING MEDICATION ORDER
[2021-09-02] MEDS ORDERED: SIMETHICONE 40 MG/0.6 ML PO ONE (21:50)
--- NOTE | 2021-09-02 22:45 | NUR ---
ER AT BEDSIDE
[2021-09-02] MEDS ORDERED: traZODone 50 MG TAB ONE ×2 (23:05→23:06)
--- NOTE | 2021-09-03 00:45 | NUR ---
PT RESTING RESP EVEN AND UNLABORED. Q15 CHECKS
--- NOTE | 2021-09-03 00:58 | NUR ---
PENDING TELEPSYCH NO ETA DUE TO HIGH VOLUME
--- NOTE | 2021-09-03 01:46 | NUR ---
PT RESTING RESP EVEN AND UNLABORED. SIDE RAILS UP X1. BED AT LOWEST POSITION
--- NOTE | 2021-09-03 04:05 | NUR ---
NO CHANGE IN PATIENTS CONDITION. Q15 SI CHECKS . PT IS SLEEPING RESP EVEN AND UNLABORED. SIDE RAILS UP X1. BED AT LOWEST POSITION. PT AMBULATED TO BATHROOM WITH WALKER.
--- NOTE | 2021-09-03 05:42 | NUR ---
PATIENT UP TO BATHROOM WITH WALKER. GAIT STEADY
--- NOTE | 2021-09-03 06:28 | NUR ---
PATIENT IS AWAKE; 7/10 THOMAS REQUESTING PAIN MED. ER MD AWARE . PENDING MED ORDER
[2021-09-03] MEDS ORDERED: ACETAMINOPHEN 325 MG TAB PO ONE ×2 (06:40→14:05)
[2021-09-03] MEDS ORDERED: ACETAMINOPHEN 325 MG TAB ONE (06:40)
--- NOTE | 2021-09-03 06:59 | NUR ---
PATIENT IS MEDICALLY CLEARED BY DR ARROYO. ÁLVARO FAXED OVER PATIENTS INFO TO [facility] @4604
--- NOTE | 2021-09-03 07:23 | NUR ---
REPORT RECEIVED FROM JACQUES MCKEE. ASSUMED CARE AT THIS TIME
--- NOTE | 2021-09-03 07:23 | NUR ---
report given to KATE MCKEE. transfered care at this time
--- NOTE | 2021-09-03 07:45 | NUR ---
61 Y/O FEMALE BIBA FROM [facility] DUE TO SI. PT AWAKE , SITTING UP IN BED. NO VISIBLE DISTRESS, RESPIRATIONS EVEN AND UNLABORED. PT AMBULATORY W/ASSISTIVE DEVICE. WALKER AT BEDSIDE. PT IN VIEW, BED AT LOWEST POSITION WITH BED RAIL UP X1.
--- NOTE | 2021-09-03 08:05 | NUR ---
PT PROVIDED WITH BREAKFAST. PT AWAKE AND EATING IN BED
--- NOTE | 2021-09-03 08:32 | NUR ---
MARTIN LAYNE CALLED AND MADE AWARE OF MISSING ORIGINAL 9670 HOLD COPY. AWAITING OFFICER TO BRING ORIGINAL OR RE EVALUATE PT
--- NOTE | 2021-09-03 08:33 | NUR ---
PT REPORTS NEW ONSET OF ANXIETY. MD MADE AWARE
[2021-09-03] MEDS ORDERED: busPIRone 5 MG TAB PO SCH (08:45)
[2021-09-03] MEDS ORDERED: estradioL 1 MG TAB PO SCH (08:45)
[2021-09-03] MEDS ORDERED: atenoloL 25 MG TAB PO ONE (08:45)
[2021-09-03] MEDS ORDERED: FUROSEMIDE 20 MG TAB PO ONE (08:45)
[2021-09-03] MEDS ORDERED: DIVALPROEX 500 MG TABEC PO ONE (08:45)
--- NOTE | 2021-09-03 08:46 | NUR ---
SPOKE WITH [employer] OFFICER . ETA 15-20 MIN
--- NOTE | 2021-09-03 09:10 | NUR ---
ORIGINAL 5150 COPY BROUGHT IN BY MARTIN LAYNE. PLACED IN CHART
[2021-09-03] MEDS ORDERED: busPIRone 5 MG TAB ONE (09:27)
--- NOTE | 2021-09-03 10:32 | NUR ---
PT AMBULATORY USING WALKER TO RESTROOM
--- NOTE | 2021-09-03 10:42 | NUR ---
PT AMBULATED USING WALKER BACK TO ROOM
--- NOTE | 2021-09-03 11:17 | NUR ---
PT PROVIDED WITH SANDWICH AND JUICE. EATING IN BED
--- NOTE | 2021-09-03 11:41 | NUR ---
Patient packet faxed out to the [facility] facilities; [facility], [facility], [facility], [facility], [facility], [facility]
--- NOTE | 2021-09-03 12:52 | NUR ---
PT AWAKE AND EATING IN BED
--- NOTE | 2021-09-03 14:00 | NUR ---
PT REPORTS 12/18 MIGRAINE, NOTIFIED
--- NOTE | 2021-09-03 15:12 | NUR ---
Patient is being evaluated by Dr. Chaudhry from [facility].
--- NOTE | 2021-09-03 18:19 | NUR ---
MARTIN QUICK NOTIFIED OF PT TRANSFER. SPOKE WITH Brennen COLLAZO
--- NOTE | 2021-09-03 18:30 | NUR ---
UBER UNABLE TO WAIT FOR PT. NEW UBER TO BE CALLED
--- NOTE | 2021-09-03 18:36 | NUR ---
Note french in EDM - 09/03/21 at 1839 by PHSEP Patient discharged with v/s stable. Written and verbal after care instructions given and explained. Patient verbalized understanding. Ambulatory with steady gait USING WALKER. All questions addressed prior to discharge. Advised to follow up with PMD.
[2021-09-03 18:37] VITALS: BP 137/81
--- NOTE | 2021-09-03 18:38 | NUR ---
Patient discharged with v/s stable. Written and verbal after care instructions given and explained. Patient verbalized understanding. Ambulatory with steady gait USING WALKER. All questions addressed prior to discharge. Advised to follow up with PMD. PT PROVIDED WITH UBER BACK TO [facility]. PT WAITING FOR RIDE IN [facility]
--- NOTE | 2021-09-03 18:39 | NUR ---
Chart checked and completed. The patient's care was reviewed and supervised by April Seaman RN.
[2021-09-03] MEDS ORDERED: traZODone 50 MG TAB PO SCH (21:00)
== END 2021-09-03 18:38 | disposition home or self-care (01) ==
LOC: MED 12:52
DX: R45.851 Suicidal ideations (principal); Z20.822 Contact with and (suspected) exposure to COVID-19; L97.529 Non-pressure chronic ulcer of other part of left foot with unspecified severity; F31.9 Bipolar disorder, unspecified; F20.9 Schizophrenia, unspecified; K21.9 Gastro-esophageal reflux disease without esophagitis; I11.0 Hypertensive heart disease with heart failure; I50.9 Heart failure, unspecified; Z79.1 Long term (current) use of non-steroidal anti-inflammatories (NSAID); Z79.899 Other long term (current) drug therapy; Z79.891 Long term (current) use of opiate analgesic; Z91.011 Allergy to milk products; Z88.1 Allergy status to other antibiotic agents
CPT/HCPCS: 36415; 73660; 80053; 85025; 85651; 87426; 87635; 93005; 99285; C9803; G0480; G0482; Q0092

== ENCOUNTER 2021-09-30 17:21 | Emergency (ER) | payer OTHER ==
[~2021-09-30] VITALS: Ht 162.6 cm; Wt 59.9 kg
[2021-09-30 17:26] VITALS: BP 106/69
[2021-09-30 18:10] LABS: BASOPHILS % (AUTO) 0.1 % (0.0-2.0); EOSINOPHILS # (AUTO) 0.1 K/uL (0-0.4); EOSINOPHILS % (AUTO) 2.5 % (0.0-4.0); HEMATOCRIT 30.4 % (36-48); LYMPHOCYTES # (AUTO) 1.5 K/uL (2.5-16.5); LYMPHOCYTES % (AUTO) 28.5 % (20.5-51.1); MEAN CORPUSCULAR HEMOGLOBIN 31 pg (27-31); MEAN CORPUSCULAR HGB CONC 33 g/dL (33-37); MEAN CORPUSCULAR VOLUME 94.5 fL (80-94); MONOCYTES # (AUTO) 0.8 K/uL (0.8-1.0); MONOCYTES % (AUTO) 14.9 % (1.7-9.3); NEUTROPHILS # (AUTO) 2.8 K/uL (1.8-7.7); PLATELET COUNT (AUTO) 186 K/uL (140-450); RED BLOOD CELL COUNT(AUTO) 3.21 MIL/uL (4.20-5.40); RED CELL DISTRIBUTION WIDTH 12.9 % (11.6-13.7); WHITE BLOOD COUNT (AUTO) 5.2 K/uL (4.8-10.8)
[2021-09-30] MEDS ORDERED: DICYCLOMINE HCL LIQUID 20 MG, ALUMINUM HYD/MAG/SIMETHICONE 30 ML, LIDOCAINE VISCOUS 2% ... PO ONE ×3 (19:05)
[2021-09-30] MEDS ORDERED: ALUMINUM HYD/MAG/SIMETHICONE 30 ML UDC ONE (19:09)
[2021-09-30] MEDS ORDERED: DICYCLOMINE HCL LIQUID 10 MG/5 ML UDC ONE (19:09)
[2021-09-30] MEDS: KETOROLAC 30 MG/ML VIAL IM ONE ×2 (19:10→19:13)
--- NOTE | 2021-09-30 20:11 | NUR ---
Blood for labwork drawn per psychological science professor. Patient tolerated well.
--- NOTE | 2021-09-30 20:11 | NUR ---
Patient reported, wants to go home, Dr. Trujillo notified.
[2021-09-30 20:24] VITALS: BP 132/75
--- NOTE | 2021-09-30 20:24 | NUR ---
Patient does not wish to proceed with medical care recommended by Dr. Trujillo. Patient given information related to possible complications, up to and including , which could occur as a result of leaving hospital at this time. Patient verbalizes understanding of risks involved leaving against medical advice. Patient has signed AMA form.
[2021-09-30] MEDS ORDERED: BEN10 PO (20:27)
[2021-09-30] MEDS ORDERED: BISM262C53 PO (20:27)
--- NOTE | 2021-09-30 20:47 | NUR ---
[facility]
[2021-09-30 22:36] LABS: ANION GAP 13.7 (8-16); CARBON DIOXIDE 29.8 mmol/L (21-32); POTASSIUM 4.5 mmol/L (3.5-5.1)
[2021-09-30 22:37] LABS: CREATININE 0.9 mg/dL (0.6-1.3); TOTAL BILIRUBIN 0.3 mg/dL (0.0-1.0)
== END 2021-09-30 20:24 | disposition left against medical advice (07) ==
LOC: MED 17:21
DX: R07.89 Other chest pain (principal); R10.9 Unspecified abdominal pain; I10 Essential (primary) hypertension; F20.9 Schizophrenia, unspecified; F32.9 Major depressive disorder, single episode, unspecified; Z79.899 Other long term (current) drug therapy; Z88.8 Allergy status to other drugs, medicaments and biological substances; Z90.710 Acquired absence of both cervix and uterus; Z98.890 Other specified postprocedural states
CPT/HCPCS: 36415; 71045; 80053; 81025; 83690; 83880; 84484; 85025; 93005; 99285; J1885; Q0092

== ENCOUNTER 2021-10-11 08:32 | Inpatient (IN) | payer OTHER ==
[~2021-10-11] VITALS: Ht 167.6 cm; Wt 88.2 kg
[~2021-10-11 08:32] MED LIST changes: +BEN10 PO; +BISM262C53 PO
--- NOTE | 2021-10-11 08:37 | NUR ---
PREMA PAUL VIA GURNEY TO BED 09.
[2021-10-11 08:41] VITALS: BP 91/55
--- NOTE | 2021-10-11 08:45 | NUR ---
61 y/o F BIBA from [facility] sitting in lobby c/o chest pain, SOB x 30 min. Patient A&Ox4, states left sided chest-pressure 8/10, non-radiating pain. States sore throat and SOB for a few days. Bilateral LE swelling noted treated with ABX for infection per patient. Denies fever, nausea, vomiting. States 10/10 radiating to abd. EMS 12 lead Sinus rhythm @ 64. manager monitoring in place. Bed locked in lowest position, side rails x 1. PMH: schizoprenia, HTN Meds: atenolol, busprione, divalproex, lasix, hydrochlorothiazide, trazodone, zolpidem, norco-apap, losartan Allergies: Keflex
--- NOTE | 2021-10-11 09:06 | NUR ---
CATHERINE AND FLU SWABS COLLECTED AND HANDED TO RUBBER DOWN FARA
--- NOTE | 2021-10-11 09:29 | NUR ---
RAD at bedside
[2021-10-11] MEDS ORDERED: ASPIRIN 325 MG TAB PO ONE (09:35)
[2021-10-11 09:36] LABS: ALBUMIN 3.3 g/dL (3.4-5.0); ANION GAP 7.6 (8-16); CARBON DIOXIDE 34.5 mmol/L (21-32); CREATININE 1.2 mg/dL (0.6-1.3); POTASSIUM 4.1 mmol/L (3.5-5.1); TOTAL BILIRUBIN 0.3 mg/dL (0.0-1.0)
--- NOTE | 2021-10-11 09:42 | NUR ---
Pt assisted to restroom via wheelchair for UA.
[2021-10-11 10:08] LABS: BILIRUBIN,URINE NEGATIVE (NEGATIVE); BLOOD, URINE NEGATIVE (NEGATIVE); COLOR,URINE YELLOW (YELLOW); LEUKOCYTE ESTERASE ,URINE NEGATIVE (NEGATIVE); NITRITE, URINE NEGATIVE (NEGATIVE); UGLUCOSE NEGATIVE (NEGATIVE)
[2021-10-11 10:09] LABS: APPEARANCE,URINE SLIGHTLY HAZY (CLEAR)
[2021-10-11 10:18] LABS: CALCIUM OXALATE CRYSTALS,UR None Seen /HPF (None Seen); HYALINE CASTS, URINE None Seen /LPF (None Seen); OTHER CRYSTALS,URINE None Seen /HPF (None Seen); RBC,URINE NONE SEEN /HPF (0-5); TRICHOMONAS,URINE None Seen /HPF (None Seen); TRIPLE PHOSPHATE CRYSTAL,UR None Seen /HPF (None Seen); URIC ACID CRYSTALS,URINE None Seen /HPF (None Seen); URINE AMORPHOUS URATE None Seen /HPF (None Seen); WBC,URINE NONE SEEN /HPF (0-5); YEAST,URINE None Seen /HPF (None Seen)
[2021-10-11 10:19] LABS: COARSE GRANULAR CASTS,URINE None Seen /LPF (None Seen); FINE GRANULAR CASTS,URINE None Seen /LPF (None Seen); OTHER CASTS, URINE None Seen /LPF (None Seen); RED BLOOD CELL CASTS,URINE None Seen /LPF (None Seen); WAXY CASTS,URINE None Seen /LPF (None Seen)
--- NOTE | 2021-10-11 10:21 | NUR ---
Patient refusing to take prescribed ASA; states her PCP states she cannot take aspirin. Unable to provide reason. Dr. Bustillo made aware.
[2021-10-11] MEDS ORDERED: OSELTAMIVIR PHOSPHATE 75 MG CAP PO ONE (10:25)
--- NOTE | 2021-10-11 10:35 | NUR ---
Spoke with Madeleine, nurse supervisor chemical from [facility] who states patient will not be able to return to facility due to Influenza + status; SNF does not have quarantine capabilities. Dr. Bustillo made aware.
--- NOTE | 2021-10-11 10:54 | NUR ---
Blood work handed to CPT marianne at ER bedside
[2021-10-11] MEDS ORDERED: guaiFENesin DM 200/20 MG-10 ML 10 ML UDC PO PRN (11:00)
[2021-10-11] MEDS ORDERED: ACETAMINOPHEN 325 MG TAB PO PRN (11:00)
[2021-10-11] MEDS ORDERED: DOCUSATE SODIUM 100 MG GELCAP PO PRN (11:00)
[2021-10-11] MEDS ORDERED: POTASSIUM CHLORIDE 10 MEQ TABER PO PRN (11:00)
[2021-10-11] MEDS ORDERED: HYDROcodone/APAP 7.5/325 MG 1 TAB PO PRN (11:00)
[2021-10-11] MEDS ORDERED: ZOLPIDEM 5 MG TAB PO PRN (11:00)
[2021-10-11] MEDS ORDERED: ONDANSETRON 4 MG/2 ML VIAL IM/IVP PRN (11:00)
[2021-10-11 11:18] LABS: MAGNESIUM 2.4 mg/dL (1.8-2.4); PHOSPHORUS 4.6 mg/dL (2.5-4.9)
[2021-10-11 11:29] LABS: PROTHROMBIN TIME 10.4 secs (10.8-13.4)
[2021-10-11] MEDS ORDERED: QUET100T PO (11:29)
[2021-10-11] MEDS ORDERED: BUSP15TA4 PO (11:29)
[2021-10-11] MEDS ORDERED: TOP25 PO (11:29)
[2021-10-11] MEDS ORDERED: LACT10SO86 PO (11:29)
[2021-10-11] MEDS ORDERED: RIZA10TA21 PO (11:29)
[2021-10-11] MEDS ORDERED: GABA100C PO (11:29)
[2021-10-11] MEDS ORDERED: FURO-572 PO (11:29)
[2021-10-11] MEDS ORDERED: SIME80TA22 PO (11:29)
[2021-10-11] MEDS ORDERED: LINA145C PO (11:29)
[2021-10-11] MEDS ORDERED: ATEN50TA8 PO (11:29)
[2021-10-11] MEDS ORDERED: ZOLP5TAB1 PO (11:29)
[2021-10-11] MEDS ORDERED: HYDR-4004 PO (11:29)
[2021-10-11] MEDS ORDERED: [UNRECOGNIZED DRUG - CODE] PO (11:29)
[2021-10-11] MEDS ORDERED: MAGN100T16 PO (11:29)
[2021-10-11] MEDS ORDERED: SENN-72 PO (11:29)
[2021-10-11] MEDS ORDERED: [UNRECOGNIZED DRUG - CODE] PO (11:29)
[2021-10-11] MEDS ORDERED: TRAZ-343 PO (11:29)
[2021-10-11] MEDS ORDERED: LOSA100T1 PO (11:29)
[2021-10-11] MEDS ORDERED: PENT100C5 PO (11:29)
[2021-10-11] MEDS ORDERED: ACET-2619 PO (11:29)
[2021-10-11] MEDS ORDERED: MAGN400T7 PO (11:29)
[2021-10-11] MEDS ORDERED: DIVA500T1 PO (11:29)
[2021-10-11] MEDS ORDERED: ALBUTEROL SULFATE/IPRATROPIU 3 ML SOL IH ONE (11:30)
--- NOTE | 2021-10-11 11:58 | NUR ---
Patient will be admitted to care of Dr. Flores. Admited to Telemetry. Will go to room 115. Belongings list completed. Report to DEE Aguero.
--- NOTE | 2021-10-11 12:10 | NUR ---
PT ARRIVED FROM ED WITH ALEXANDRA, TRANSFERRED PT TO BED, TOLERATED WELL, PT ON ROOM AIR, NO SOB NOTED, IV TO LEFT AC 20G PATENT INTACT, SL. ORIENT PT TO ROOM, BED CALL LIGHT. INITIAL ASSESSMENT DONE, ALL SAFETY PRECAUTION MET, MRSA SWAB TAKEN. WILL CONTINUE TO MONITOR.
[2021-10-11 12:15] VITALS: BP 105/56
[2021-10-11] MEDS ORDERED: MAGNESIUM CITRATE 300 ML BTL PO PRN (13:15)
[2021-10-11] MEDS ORDERED: ACETAMINOPHEN 325 MG TAB PO SCH (13:15)
--- NOTE | 2021-10-11 13:19 | NUR ---
SPOKE TO DR FONSECA REGARDING PT COMPLAINING OF NOTHING TO EAT, PER DR CROUCH TO ORDER [facility] DIET FOR PT. WILL CONTINUE WITH ORDERS.
--- NOTE | 2021-10-11 14:21 | NUR ---
PATIENT HAS BEEN SCREENED AND CATEGORIZED MODERATE NUTRITION RISK. PATIENT WILL BE SEEN WITHIN 3-[address]. [address]
[2021-10-11 16:00] VITALS: BP 112/61
[2021-10-11 16:16] LABS: BARBITURATE, URINE NEGATIVE ng/ml (NEG <=200); BENZODIAZEPINE, URINE NEGATIVE ng/mL (NEG <=200); CANNABINOID, URINE NEGATIVE ng/mL (NEG <=50); COCAINE, URINE NEGATIVE ng/mL (NEG <=300); OPIATE, URINE POSITIVE ng/mL (NEG <=2000); PHENCYCLIDINE SCREEN,URINE NEGATIVE ng/mL (NEG <=25)
--- NOTE | 2021-10-11 19:19 | NUR ---
ENDORSED PT TO BROADCAST SUPERVISOR NURSE FOR CONTINUOUS OF CARE.
[2021-10-11 20:00] VITALS: BP 119/55
[2021-10-11] MEDS: DOCUSATE SODIUM 100 MG GELCAP PO SCH (20:44)
[2021-10-11] MEDS: GABAPENTIN 100 MG CAP PO SCH (20:44)
[2021-10-11] MEDS: MAGNESIUM HYDROXIDE 2400 MG/30 ML UDC PO SCH (20:44)
[2021-10-11] MEDS: DIVALPROEX 500 MG TABEC PO SCH (20:45)
[2021-10-11] MEDS: traZODone 50 MG TAB PO SCH (20:45)
[2021-10-11] MEDS: QUEtiapine FUMARATE 100 MG TAB PO SCH (20:45)
[2021-10-11] MEDS: TOPIRAMATE 25 MG TAB PO SCH (20:45)
[2021-10-12] VITALS: BP 121/57
[2021-10-12 04:00] VITALS: BP 118/55
--- NOTE | 2021-10-12 07:14 | NUR ---
OPENING NOTE: REPORT RCVD FROM OUTGOING NOC RN, ALL CARES ASSUMED.
[2021-10-12 07:32] LABS: ANION GAP 9.8 (8-16); CARBON DIOXIDE 31.4 mmol/L (21-32); CREATININE 0.8 mg/dL (0.6-1.3); POTASSIUM 5.2 mmol/L (3.5-5.1)
[2021-10-12 07:34] LABS: BASOPHILS % (AUTO) 0.1 % (0.0-2.0); EOSINOPHILS # (AUTO) 0.2 K/uL (0-0.4); EOSINOPHILS % (AUTO) 4.4 % (0.0-4.0); HEMATOCRIT 29.4 % (36-48); HEMOGLOBIN 9.8 g/dL (12.0-16.0); LYMPHOCYTES # (AUTO) 1.5 K/uL (2.5-16.5); MEAN CORPUSCULAR HEMOGLOBIN 32 pg (27-31); MEAN CORPUSCULAR HGB CONC 33 g/dL (33-37); MEAN CORPUSCULAR VOLUME 95.4 fL (80-94); MONOCYTES # (AUTO) 0.6 K/uL (0.8-1.0); MONOCYTES % (AUTO) 11.4 % (1.7-9.3); NEUTROPHILS # (AUTO) 2.6 K/uL (1.8-7.7); NEUTROPHILS % (AUTO) 53.1 % (42.2-75.2); PLATELET COUNT (AUTO) 173 K/uL (140-450); RED BLOOD CELL COUNT(AUTO) 3.08 MIL/uL (4.20-5.40); RED CELL DISTRIBUTION WIDTH 12.9 % (11.6-13.7)
[2021-10-12 08:00] VITALS: BP 116/68
--- NOTE | 2021-10-12 08:21 | NUR ---
PRIMARY MD MAKING ROUNDS, BEDSIDE REPORT GIVEN.
--- NOTE | 2021-10-12 08:26 | NUR ---
CRITICAL LAB MD AT BEDSIDE AWARE OF K+ 5.2 LAB RESULT, NEW ORDER RCVD AND TRANSCRIBED.
[2021-10-12] MEDS: LOSARTAN 50 MG TAB PO SCH (08:38)
[2021-10-12] MEDS: DOCUSATE SODIUM 100 MG GELCAP PO SCH ×2 (08:38→20:46)
[2021-10-12] MEDS: MAGNESIUM HYDROXIDE 2400 MG/30 ML UDC PO SCH ×2 (08:39→20:44)
[2021-10-12] MEDS: PANTOPRAZOLE 40 MG TABEC PO SCH (08:39)
[2021-10-12] MEDS: OSELTAMIVIR PHOSPHATE 75 MG CAP PO SCH ×2 (08:39→20:45)
[2021-10-12] MEDS: DIVALPROEX 500 MG TABEC PO SCH ×2 (08:39→20:46)
[2021-10-12] MEDS: QUEtiapine FUMARATE 100 MG TAB PO SCH ×2 (08:39→20:44)
[2021-10-12] MEDS: SIMETHICONE 80 MG TAB.CHEW PO SCH (08:39)
[2021-10-12] MEDS: atenoloL 50 MG TAB PO SCH (08:39)
[2021-10-12] MEDS: hydroCHLOROthiazide 25 MG TAB PO SCH (08:39)
[2021-10-12] MEDS ORDERED: predniSONE 20 MG TAB PO ONE (09:00)
[2021-10-12] MEDS ORDERED: SODIUM ZIRCONIUM CYCLOSILICATE 10 GM POWD.PACK PO SCH (09:00)
--- NOTE | 2021-10-12 11:10 | NUR ---
DR. LOPEZ MAKING ROUNDS, BEDSIDE REPORT GIVEN AND ALL QUESTIONS ANSWERED.
--- NOTE | 2021-10-12 11:29 | NUR ---
DC PLANNING: THE PATIENT ADMITTED FROM [facility] [place], [facility] BY [facility] WITH C/O CHEST PAIN, SORE THROAT, TOE WOUND AND BLE EDEMA. H/O HTN, SCHIZOPHRENIA, CHF POSITIVE FOR INFLUENZA A. EKG SHOWS BORDERLINE CARDIOMEGALY, STARTED ON TAMIFLU AND REGULAR MEDICATIONS. AFEBRILE, NO C/O N/V OR DIARRHEA. PATIENT UNABLE TO BE RETURNED TO [facility] BECAUSE OF LACK OF ISOLATION CAPABILITY PER ER. JAMES SPOKE WITH SILVA AT [facility] REGARDING PATIENT RETURNING TO [facility]. SHE STATES THAT PATIENT HAS A ROOMMATE AND THAT THE FACILITY ISN'T LICENSED TO QUARANTINE PATIENT. SILVA STATES THAT IF PATIENT IS ASYMPTOMATIC SHE CAN RETURN, JAMES ENDORSED THAT PATIENT HAS BEEN STARTED ON TAMIFLU. SILVA AGREED TO TAKE PATIENT BACK TOMORROW IF PATIENT REMAINS FREE OF FEVER, N/V OR DIARRHEA, JAMES WILL HAVE NURSING GIVE REPORT IN AM AND WILL FAX CLINICALS TOMORROW PER HER REQUEST. JAMES SPOKE WITH THE PATIENT AT BEDSIDE, THE PATIENT IS AMBULATING IN HER ROOM AND HAS NO ACTIVITY LIMITATIONS AT HER FACILITY. THE PATIENT STATES THAT SHE HAS A CONSERVATOR THROUGH THE [employer] OFFICE AND WILL BE LEAVING [facility] IN JANUARY HER CONSERVATOR IS FINDING ANOTHER FACILITY FOR HER TO GO TO. THE PATIENT THEN STATED THAT SHE WAS GETTING UPSET AND WANTED TO END THE CONVERSATION. JAMES WILL FOLLOW. Addendum: 10/13/21 at 1121 by Carmen Shahid CM DC PLANNING: JAMES SPOKE WITH SILVA AT [facility] TO ENDORSE DC. PATIENT TO BE PICKED UP BY [facility] AT 1300, PLAN ENDORSED TO PATIENTS NURSE. JAMES WILL FOLLOW. Addendum: 10/13/21 at 1200 by Carmen Shahid CM DC PLANNING: JAMES SPOKE WITH PATIENT AT BEDSIDE TO ENDORSE DC BACK TO [facility] AND HYDROGENATION STILL OPERATOR AT 1300. JAMES WILL FOLLOW.
[2021-10-12] MEDS: LIDOCAINE 5% 1 EA PATCH TP SCH (11:58)
[2021-10-12 12:00] VITALS: BP 127/67
--- NOTE | 2021-10-12 12:02 | NUR ---
LIDOCAINE PATCH APPLIED TO POSTERIOR LUMBAR REGION, PT TOLERATED WELL.
--- NOTE | 2021-10-12 12:09 | NUR ---
2/10 BACK PAIN REPORTED, PRN TYLENOL GIVEN PER ORDER.
--- NOTE | 2021-10-12 12:45 | NUR ---
BACK PAIN RESOLVED, PATIENT CALM AND COOPERATIVE. PAIN MEDICATION EFFECTIVE.
--- NOTE | 2021-10-12 13:30 | NUR ---
PATIENT REMAINS STABLE IN NO ACUTE DISTRESS AND OR DISCOMFORT. CALL LIGHT IN REACH, BED LOW AND LOCKED FOR SAFETY. ATTEMPTED AT EDUCATION WITH PATIENT R/T DX AND TREATMENT PLAN, PATIENT REFUSED AT THIS TIME.
--- NOTE | 2021-10-12 15:35 | NUR ---
SNACK OFFERED TO PATIENT
[2021-10-12 16:00] VITALS: BP 110/59
--- NOTE | 2021-10-12 16:56 | NUR ---
ISAC MATTA MAKING ROUNDS, BEDSIDE REPORT GIVEN.
--- NOTE | 2021-10-12 18:55 | NUR ---
CLOSING NOTE: REPORT GIVEN TI INCOMING NOC RN, ALL CARES ENDORSED.
[2021-10-12 20:00] VITALS: BP 118/72
[2021-10-12] MEDS: GABAPENTIN 100 MG CAP PO SCH (20:44)
[2021-10-12] MEDS: TOPIRAMATE 25 MG TAB PO SCH (20:45)
[2021-10-12] MEDS: traZODone 50 MG TAB PO SCH (20:45)
[2021-10-13] VITALS: BP 100/62
[2021-10-13 06:07] LABS: EOSINOPHILS # (AUTO) 0.2 K/uL (0-0.4); EOSINOPHILS % (AUTO) 3.6 % (0.0-4.0); HEMATOCRIT 28.7 % (36-48); HEMOGLOBIN 9.6 g/dL (12.0-16.0); LYMPHOCYTES # (AUTO) 1.5 K/uL (2.5-16.5); LYMPHOCYTES % (AUTO) 35.8 % (20.5-51.1); MEAN CORPUSCULAR HEMOGLOBIN 32 pg (27-31); MEAN CORPUSCULAR HGB CONC 33 g/dL (33-37); MEAN CORPUSCULAR VOLUME 94.4 fL (80-94); MONOCYTES # (AUTO) 0.5 K/uL (0.8-1.0); MONOCYTES % (AUTO) 12.2 % (1.7-9.3); NEUTROPHILS # (AUTO) 2.1 K/uL (1.8-7.7); NEUTROPHILS % (AUTO) 48.4 % (42.2-75.2); PLATELET COUNT (AUTO) 163 K/uL (140-450); RED BLOOD CELL COUNT(AUTO) 3.04 MIL/uL (4.20-5.40); RED CELL DISTRIBUTION WIDTH 12.9 % (11.6-13.7); WHITE BLOOD COUNT (AUTO) 4.3 K/uL (4.8-10.8)
[2021-10-13 07:01] LABS: ANION GAP 11.6 (8-16); CARBON DIOXIDE 26.9 mmol/L (21-32); CREATININE 0.7 mg/dL (0.6-1.3); POTASSIUM 4.5 mmol/L (3.5-5.1)
--- NOTE | 2021-10-13 07:30 | NUR ---
RECEIVED REPORT FROM CLOTH PRESSER NURSE FOR CONTINUITY OF CARE. PT IS AWAKE, IN BED. RESPIRATIONS EVEN AND UNLABORED ON RA. NO DISTRESS NOTED. DENIES PAIN. A&O4, ABLE TO COMMUNICATE NEEDS. PITTING EDEMA NOTED ON BILATERAL FOOT. LEFT FOOT COVERED WITH GAUZE. IV SITE AT LAC, 20G. SL. CALL LIGHT WITHIN REACH. SAFETY PRECAUTIONS IN PLACE. WILL CONTINUE TO MONITOR.
[2021-10-13 08:00] VITALS: BP 106/49
--- NOTE | 2021-10-13 08:00 | NUR ---
REVIEWED AND DISCUSSED PT PLAN OF CARE WITH RAFI BURCH.
[2021-10-13] MEDS: MAGNESIUM HYDROXIDE 2400 MG/30 ML UDC PO SCH (09:00)
[2021-10-13] MEDS: DOCUSATE SODIUM 100 MG GELCAP PO SCH (09:00)
[2021-10-13] MEDS: LOSARTAN 50 MG TAB PO SCH (09:28)
[2021-10-13] MEDS: DIVALPROEX 500 MG TABEC PO SCH (09:28)
[2021-10-13] MEDS: SIMETHICONE 80 MG TAB.CHEW PO SCH (09:29)
[2021-10-13] MEDS: PANTOPRAZOLE 40 MG TABEC PO SCH (09:30)
[2021-10-13] MEDS: hydroCHLOROthiazide 25 MG TAB PO SCH (09:30)
[2021-10-13] MEDS: QUEtiapine FUMARATE 100 MG TAB PO SCH (09:31)
[2021-10-13] MEDS: OSELTAMIVIR PHOSPHATE 75 MG CAP PO SCH (09:31)
[2021-10-13] MEDS: atenoloL 50 MG TAB PO SCH (09:32)
[2021-10-13] MEDS: LIDOCAINE 5% 1 EA PATCH TP SCH (09:33)
--- NOTE | 2021-10-13 09:50 | NUR ---
ADMINISTERED SCHEDULED MORNING MEDS. PT REFUSED DOCUSATE SODIUM AND MILK OF MAGNESIA. PT STATED SHE DOESN'T NEED IT. PT TEACHING ABOUT MEDS GIVEN. RISKS OF NOT TAKING MEDS DISCUSSED. PT VERBALIZED UNDERSTANDING.
--- NOTE | 2021-10-13 10:10 | NUR ---
NO WOUND CARE CONSULT DONE, PT. REFUSED. PT. IS AAX4. PER PT. SHE FOLLOWS HER OWN DR. DR. DILL FOR CARE AND PT. STATES " I NEED TO GO NOW, LET ME GO HOME." POC DISCUSSS WITH PT. TO CONTINUE TO FOLLOW DR. DILL'S CARE FOR FOOT WOUND CARE. PT. VERBALIZES UNDERSTANDING
[2021-10-13] MEDS ORDERED: TAM75 PO (10:46)
[2021-10-13 11:12] VITALS: BP 106/49
--- NOTE | 2021-10-13 11:53 | NUR ---
INFORMED PT OF THE DC ORDER. PT VERBALIZED UNDERSTANDING. DID WOUND DRESSING CHANGE. PIC TAKEN.
[2021-10-13 12:00] VITALS: BP 121/65
--- NOTE | 2021-10-13 13:10 | NUR ---
DISCHARGE PAPERS DISCUSSED WITH THE PT. PT VERBALIZED UNDERSTANDING. REMOVED IV CATHETER INTACT. REMOVED IV WRIST BAND. PT DC TO [facility]. PT WHEELED OUT BY THE NURSE TO FRONT LOBBY VIA WHEELCHAIR. ALL BELONGINGS TAKEN UPON DC. PT IS STABLE.
== END 2021-10-13 13:39 | disposition home or self-care (01) | DRG 313 ==
LOC: MED 08:32 → MTU 11:00
PROVIDERS: ADMIT Student in an Organized Health Care Education/Training Program; ATTEND Student in an Organized Health Care Education/Training Program
DX: R07.89 Other chest pain (principal); E44.1 Mild protein-calorie malnutrition; J98.11 Atelectasis; J10.1 Influenza due to other identified influenza virus with other respiratory manifestations; I10 Essential (primary) hypertension; R06.03 Acute respiratory distress; K59.00 Constipation, unspecified; F99 Mental disorder, not otherwise specified; F20.9 Schizophrenia, unspecified; I25.10 Atherosclerotic heart disease of native coronary artery without angina pectoris; I44.7 Left bundle-branch block, unspecified; Z20.822 Contact with and (suspected) exposure to COVID-19; I11.0 Hypertensive heart disease with heart failure; I50.9 Heart failure, unspecified; J45.909 Unspecified asthma, uncomplicated; Z90.710 Acquired absence of both cervix and uterus; Z88.8 Allergy status to other drugs, medicaments and biological substances; Z79.899 Other long term (current) drug therapy; Z88.1 Allergy status to other antibiotic agents; Z68.31 Body mass index [BMI] 31.0-31.9, adult
CPT/HCPCS: 36415; 71045; 80048; 80053; 80305; 81001; 82150; 83605; 83690; 83735; 83880; 84100; 84484; 85025; 85379; 85610; 85730; 87040; 87081; 93005; 99285

== ENCOUNTER 2021-10-17 08:19 | Emergency (ER) | payer OTHER ==
[~2021-10-17] VITALS: Ht 167.6 cm; Wt 85.7 kg
[~2021-10-17 08:19] MED LIST changes: +ATEN50TA8 PO; -BEN10 PO; -BISM262C53 PO; +BUSP15TA4 PO; -DIPH25TA53 PO; +DIVA500T1 PO; -FAMO-90 PO; +FURO-572 PO; +GABA100C PO; +HYDR-4004 PO; -IBUP-1842 PO; +LACT10SO86 PO; +LINA145C PO; +LOSA100T1 PO; +MAGN100T16 PO; -MAGN296S2 PO; +MAGN400T7 PO; -NAPR-1704 PO; -NAPR-54 PO; -NITR100C1 PO; -ONDA4TAB PO; +PENT100C5 PO; -PHEN-1877 PO; -PRED20TA5 PO; +QUET100T PO; +RIZA10TA21 PO; +SENN-72 PO; +SIME80TA22 PO; -SODI100076 PO; +TAM75 PO; +TOP25 PO; +TRAZ-343 PO; +ZOLP5TAB1 PO; +[UNRECOGNIZED DRUG - CODE] PO; +[UNRECOGNIZED DRUG - CODE] PO
[2021-10-17 08:22] VITALS: BP 103/55
--- NOTE | 2021-10-17 08:24 | NUR ---
HUMBERTO FROM [facility] C/O INJURY TO LEFT SIDE OF TONGUE ONSET 1 WK. NO BLEEDING NOTED. DENIES FALL OR TRAUMA. UNK CAUSE. VITALS STABLE
--- NOTE | 2021-10-17 08:25 | NUR ---
PT REFUSING TO BE PLACED ON MONITOR OR GOWN, STATING SHE JUST WANTS HER TONGUE TO BE CHECKED OUT SO SHE CAN LEAVE AFTER ERMD EXAMINATION
--- NOTE | 2021-10-17 08:35 | NUR ---
DR GALLAGHER AT BEDSIDE EVALUATING PT
[2021-10-17] MEDS ORDERED: ONDANSETRON 4 MG ODT ONE (08:39)
[2021-10-17] MEDS ORDERED: ONDANSETRON 4 MG ODT PO ONE (08:40)
--- NOTE | 2021-10-17 08:44 | NUR ---
CALLED MARTIN QUICK AND GAVE REPORT TO PAUL PRICE OF PATIENT'S DC AND TRANSPORT BACK TO FACILITY
[2021-10-17 08:50] VITALS: BP 103/55
--- NOTE | 2021-10-17 08:50 | NUR ---
Stefany braswell in EDM - 10/17/21 at 0852 by [id number] Patient discharged with v/s stable. Written and verbal after care instructions given and explained. Patient verbalized understanding. Ambulatory with steady gait. All questions addressed prior to discharge. Advised to follow up with PMD.
== END 2021-10-17 09:00 | disposition home or self-care (01) ==
LOC: MED 08:19
DX: K12.1 Other forms of stomatitis (principal); I10 Essential (primary) hypertension; I25.10 Atherosclerotic heart disease of native coronary artery without angina pectoris; F20.9 Schizophrenia, unspecified; Z91.011 Allergy to milk products
CPT/HCPCS: 99283; Q0162